=== PATIENT | male | born 1940 | race Caucasian/White ===

== ENCOUNTER 2018-01-28 06:02 | Inpatient (IN) | payer BC, MEDICARE ==
[2018-01-28] MEDS ORDERED: MIDAZOLAM 2 MG/2 ML VIAL ONE (06:58)
[2018-01-28] MEDS ORDERED: diphenhydrAMINE 50 MG/ML 1 ML VIAL ONE (06:58)
[2018-01-28] MEDS ORDERED: SODIUM CHLORIDE 0.9% 1,000 ML IV ONE (07:00)
[2018-01-28] MEDS ORDERED: diphenhydrAMINE 50 MG/ML 1 ML VIAL IVP ONE (07:00)
[2018-01-28] MEDS ORDERED: MIDAZOLAM 2 MG/2 ML VIAL IVP ONE ×2 (07:00→08:27)
[2018-01-28] MEDS ORDERED: LIDOCAINE 2% INJ 20 MG/ML SQ ONE (07:04)
[2018-01-28] MEDS ORDERED: NOREPINEPHRINE 4 MG in SODIUM CHLORIDE 0.9% 250 ML IV ONE (07:20)
[2018-01-28] MEDS ORDERED: LIDOCAINE 1% INJ 10MG/ML (20 ML MDV) ONE (07:21)
[2018-01-28] MEDS ORDERED: FUROSEMIDE 10 MG/ML 4 ML VIAL ONE (07:37)
[2018-01-28] MEDS ORDERED: HEPARIN SODIUM 1,000 UN/ML (10ML VL) ONE (08:04)
[2018-01-28] MEDS ORDERED: BIVALIRUDIN BOLUS 250 MG/50 ML IV ONE (08:27)
[2018-01-28] MEDS ORDERED: BIVALIRUDIN 250 MG in SODIUM CHLORIDE 0.9% 50 ML IV ONE (08:28)
[2018-01-28] MEDS ORDERED: FUROSEMIDE 10 MG/ML 4 ML VIAL IV ONE ×2 (08:30→08:43)
[2018-01-28] MEDS ORDERED: IOPAMIDOL-370 100ML BTL INJ ONE ×2 (08:34→08:47)
[2018-01-28] MEDS ORDERED: niCARdipine Syringe (1,000 mcg/10 mL) INTRACORON ONE (08:38)
[2018-01-28] MEDS ORDERED: TICAGRELOR 90 MG TAB PO ONE (08:45)
[2018-01-28] MEDS ORDERED: ceFAZolin IN SWFI 2 GM/20 ML SYRINGE IVP STA (08:46)
[2018-01-28] MEDS ORDERED: MORPHINE SULFATE 4 MG/ML SYRINGE IVP ONE (08:48)
[2018-01-28] MEDS ORDERED: NITROGLYCERIN SL TABS 0.4 MG TAB SUBLINGUAL PRN (09:00)
[2018-01-28] MEDS ORDERED: ATROPINE SULFATE 0.1 MG/ML 10ML SYRINGE IV PRN (09:00)
[2018-01-28] MEDS ORDERED: ZOLPIDEM 5 MG TAB PO PRN (09:00)
[2018-01-28] MEDS ORDERED: MAG HYDROX/AL HYDROX/SIMETH 30 ML CUP PO PRN (09:00)
[2018-01-28] MEDS ORDERED: RX INFO: IV CONTRAST WAS GIVEN 1 EACH MISC MISCELLANE PRN (09:00)
[2018-01-28 09:45] LABS: Glucose,Whole Blood 177 mg/dL (75-99)
--- NOTE | 2018-01-28 10:43 | CONS ---
CONSULTATION Mr. Garay is a 77-year-old gentleman with type 2 diabetes, hypertension, hypercholesterolemia and chronic atrial fibrillation on Eliquis, who was transferred from [facility] where he presented initially with shortness of breath and some chest tightness, subsequently had further additional chest discomfort with a troponin elevation up to 30 . He was transferred here with some relative hypotension and chest discomfort with atrial fibrillation rate in the high 90s and a blood pressure of about 98 to 104 systolic. Upon evaluation, patient had a pain of about 3/10 and remained relatively more comfortable after received some morphine and he was already on Eliquis 5 mg b.i.d. and the last dose he has received was about 24 hours ago. He was also on a beta savana as well that he received. He had a El catheter in place. I explained to the patient that I will proceed with cardiac cath and intervention based on findings. I explained to him the rationale, risks, benefits, options and proceeded with cardiac catheterization. RELEVANT PAST MEDICAL HISTORY: 1. Type 2 diabetes. 2. Hypertension. 3. Chronic atrial fib, well anticoagulated with Eliquis 5 mg b.i.d. MEDICATIONS: Medications at home include Januvia 50 mg daily, metoprolol 25 mg b.i.d., Protonix 40 mg daily, Synthroid 150 mcg daily, Lasix 20 mg daily, fish oil, aspirin 81 mg daily, Eliquis 5 mg b.i.d. ALLERGIES: He has some allergy to STEROIDS. PHYSICAL EXAMINATION: On examination, blood pressure is 104/60, pulse rate is about 100 per minute, irregular. There is JVD of 1 cm. No carotid bruit. S1, S2 heard normally with a short systolic murmur, irregular rate and rhythm. Lungs reveal decent air entry both lung bueno. Abdomen is soft. Lower extremities reveal very diminished pulses. Central nervous system grossly no focal deficits. IMPRESSION: 1. Acute non-ST elevation myocardial infarction with precordial ST depression and atrial fibrillation. The patient also has hypotension along with non ST elevation myocardial infarction. 2. Chronic atrial fibrillation. 3. Hypertension. 4. Type 2 diabetes mellitus. 5. Hyperlipidemia. RECOMMENDATION: I am recommending urgent cardiac cath and intervention and proceeded to perform this in the same setting. MMODL / IJN: [id number] /
[2018-01-28 10:53] LABS: Glucose,Whole Blood 201 mg/dL (75-99)
[2018-01-28] MEDS ORDERED: HEPARIN SODIUM,PORCINE 5,000 UNIT/ML 1 ML VIAL IV PRN (11:02)
--- NOTE | 2018-01-28 11:10 | CC ---
CARDIAC CATHETERIZATION REPORT DATE OF SERVICE: 01/28/2018 PROCEDURES: 1. Left heart catheterization and coronary angiography. 2. PTCA and stenting of ostial and proximal left main coronary artery performed in the setting of an acute myocardial infarction with a drug-eluting stent. 3. Intra-aortic balloon pump placement from right femoral approach for inotropic support. PERFORMED BY: Dr. Jones Ornelas. Moderate conscious sedation time was 1 hour and 3 minutes. CLINICAL INFORMATION: Mr. Ruddy Garay is a 77-year-old gentleman with a known history of type 2 diabetes, hypertension, chronic atrial fibrillation, on Eliquis 5 mg b.i.d., who presented to [facility] with shortness of breath and had chest pain and subsequently EKG revealed precordial ST-segment depression and troponin went up to 30 mcg. Patient was transferred urgently by [facility] ambulance to the dental laboratory assistant in the [facility] and I saw the patient here in the hospital. He was advised cardiac catheterization and after the cardiac catheterization, he had a significant ostial left main disease and after due evaluation of the angiogram with Dr. David Puga, he felt that urgent PCI would be a better option given the fact patient had already infarcted with a troponin of 30 and therefore I proceeded to perform intervention in the same setting after due discussion with the patient, his by phone and Dr. Puga who reviewed the angiograms. PROCEDURE DETAILS: Under strict aseptic precautions and local anesthesia, a 6-Kinyarwanda introducer was placed in the right femoral artery. Using a standard right Scarlett catheter, I performed selective coronary angiography of the RCA and using a standard left Scarlett guide catheter, I performed selective coronary angiography of the left coronary artery. I used a pigtail catheter to check LV pressures but I did not perform an LV-gram. I noted that there was a significant left main lesion and after due discussion with Dr. Puga, I proceeded to perform PCI. In between, I went there and placed intra-aortic balloon pump under fluoroscopic guidance from the right femoral approach and I placed a 6-Kinyarwanda introducer in the left femoral artery under strict aseptic precautions and local anesthesia. A good augmentation was noted. Patient was placed on Levophed up to 7.5 mcg for a brief duration. Subsequently, he was on 4 mcg of Levophed and intra- aortic balloon pump was also provided. Patient stabilized hemodynamically. PCI PROCEDURE DETAILS: After explaining the high risk involved to the patient and talking to the on the phone and after due discussion with Dr. Puga, I proceeded to perform the procedure. A JL 3.5 guide catheter was used to cannulate the left coronary artery. A BMW wire was used to cross the lesion in the left main and wire was kept in the distal LAD. Predilatation was performed with a 2.5 caliber 8 mm long Trek balloon. Two inflations were given. Subsequently I deployed a 3.25 caliber 12 mm Xience stent at 14 atmospheres. Patient had chest pain and blood pressure remained fairly stable. Excellent angiographic result without complication was achieved. The sheath was sutured from the left femoral approach. The patient had a intra-aortic balloon pump from the right femoral approach which was in good position with good augmentation. Both the sheaths were sutured and balloon pump was secured and patient was sent to the ICU in hemodynamically more stable condition on 4 mcg of Levophed. Results were discussed with the patient and . FINDINGS: 1. RIGHT CORONARY ARTERY: Technically a dominant vessel, has about a 40% lesion proximally. Mild to moderate calcification, distally continues as a good-sized branch and gives off a larger PLV, smaller PDA both of which supply a fair amount of myocardium. No significant disease other than the 40% proximal lesion in the dominant RCA. 2. LEFT MAIN CORONARY ARTERY: This vessel has an ostial lesion of about 90% with possibly some haziness and thrombus and the lesion also involves the proximal half of the left main and distally bifurcates into LAD and circumflex. Left main therefore has a 95% - 98% tight lesion with thrombus. 3. LEFT ANTERIOR DESCENDING CORONARY ARTERY: Good caliber vessel extends along the anterior wall. There is somewhat of a sluggish flow noted in the distal LAD. It gives off a good-sized diagonal branch that has about a 60% stenosis in the ostium. LAD itself has no other significant disease. It runs all the way to the apex. supplying a sizable amount of myocardium. The blood flow is somewhat sluggish in the LAD and diagonal has a 60% to 70% lesion in the proximal portion and this is a good-sized diagonal branch. 4. LEFT POSTERIOR CIRCUMFLEX CORONARY ARTERY: Technically, a nondominant vessel, has a ostial 30% narrowing and a mid lesion of about 40%. No significant disease supplies a fair amount of myocardium. 5. Left ventricular end-diastolic pressure was 28 mmHg without any gradient across the aortic valve. 6. Following the PCI of left main, excellent angiographic result was achieved. The residual stenosis in the left main was 0% with brisk flow. Patient received some nicardipine. Intra-aortic coronary and angiograms revealed remarkably good flow. LAD had a very good flow and the sluggish flow that was seen earlier resolved completely. Excellent angiographic result without complication was achieved. The intra-aortic balloon pump from the right femoral approach with 8-Kinyarwanda sheath as well as a 6-Kinyarwanda sheath in the left femoral artery were both sutured and patient was sent to the room in a stable condition. Results were discussed with the patient, and I also talked to Dr. Chua. MMROHIT / SHANTI: [id number] /
[2018-01-28] MEDS: SODIUM CHLORIDE 0.9% 1,000 ML IV SCH (11:14)
[2018-01-28] MEDS: INSULIN ASPART 100 UNIT/ML 1 ML 10 ML VIAL SQ SCH ×3 (11:18→20:28)
[2018-01-28] MEDS: ASPIRIN 81 MG PO SCH (11:19)
[2018-01-28 11:35] LABS: Basophils % (A) 0 %; Eosinophils % (A) 0 %; HCT 40.5 % (39.0-53.0); HGB 13.9 gm/dL (13.0-17.5); Lymphocytes # (A) 0.9 k/uL (1.0-4.8); Lymphocytes % (A) 6 %; MCH 31.9 pg (25.0-35.0); MCHC 34.4 g/dL (31.0-37.0); MCV 92.7 fL (80.0-100.0); Mean Platelet Volume 7.6; Monocytes # (A) 1.2 k/uL (0-1.0); Monocytes % (A) 8 %; Neutrophils # (A) 13.1 k/uL (1.3-7.7); Neutrophils % (A) 86 %; Platelet Count 214 k/uL (150-450); RBC 4.37 m/uL (4.30-5.90); RDW 13.3 % (11.5-15.5); WBC 15.3 k/uL (3.8-10.6)
[2018-01-28 11:47] LABS: Albumin 3.1 g/dL (3.5-5.0); Calcium 8.7 mg/dL (8.4-10.2); Potassium 3.9 mmol/L (3.5-5.1); Total Bilirubin 1.8 mg/dL (0.2-1.3); Total Protein 5.9 g/dL (6.3-8.2)
[2018-01-28 11:57] LABS: Magnesium 1.7 mg/dL (1.6-2.3)
[2018-01-28] MEDS: HEPARIN SOD,PORK IN 0.45% NACL 25,000 UNIT in 0.45% NACL 1 500ML.BAG IV SCH (11:57)
[2018-01-28 11:59] LABS: INR 1.6 (<1.2); Partial Thromboplastin Time 51.7 sec (22.0-30.0); Prothrombin Time 14.6 sec (9.0-12.0)
[2018-01-28] MEDS ORDERED: NALOXONE 0.4 MG/ML 1 ML VIAL IV PRN (12:07)
[2018-01-28] MEDS ORDERED: NOREPINEPHRINE 4 MG in SODIUM CHLORIDE 0.9% 250 ML IV SCH (12:30)
--- NOTE | 2018-01-28 12:34 | HP ---
HISTORY AND PHYSICAL CHIEF COMPLAINT: Nonspecific chest pain with shortness of breath. A 77-year-old white male that came to my office yesterday morning with 7 days of nonspecific chest tightness especially with coughing that was central in his chest. No radiation. No diaphoresis. No no neck, arm pain. This seemed to occur with coughing. At that period of time, initial EKG showed no acute changes. His chest x-ray does show some interstitial changes indicative of possible viremia or viral tracheobronchitis versus mycoplasma. At that period of time, we decided to place him in the hospital accordingly and he was stable, driven to the hospital by his , ended up going in to [facility] and after several hours was evaluated and came down with moderately severe, 7 to 8 on a 10 scale mid chest pain which was different. At that period of time, he was given sublingual nitroglycerin x3 without any alleviation and was directly sent down to the emergency room, which there was nitro paste was attached and also IV morphine was started. His stat blood tests finally came back several hours after being ordered and he had the elevated troponin the first of 3.6. Another repeat EKG showed no acute changes previously. Also at that time, had a sodium of 126. Blood pressure was low, was given IV fluids and continued to improve. Dr. Jones Ornelas was consulted. At this time, we felt that patient had had what appeared to be a 7 non-STEMI. Of interest was he also had an elevated D-dimer of nearly 600 and a BNP of 300. Initially a CAT scan with IV dye was to be completed of the lung, but patient did insist that he had been on his Eliquis without missing for his chronic atrial fib. AT THIS PERIOD OF TIME HIS ALLERGIES ARE: CODEINE, old time CORTISONE back 30 years ago from IV, ULTRAM, VICRYL, PROFEN, CYMBALTA, EFFEXOR, VYTORIN, ULTRACET and LYRICA. MEDICATIONS ARE: 1. Protonix 40 twice a day. 2. Synthroid 0.1 daily. 3. Hyzaar 100-12.5. 4. Januvia 50. 5. Neurontin 100.at bedtime. 6. Eliquis 5 mg b.i.d. 7. Lasix 20 mg in the morning. 8. Metoprolol 25 mg b.i.d. PREVIOUS HISTORY: Medical history is that of longstanding hypertension and generalized severe osteoarthritis. euthyroid, newly onset type 2 diabetes with minimal Januvia use, atrial fib has been going on now x2 years, but has been stable. A recent stress test was completed that I have in my hands per Dr. Trinidad but that was in August of 2016. Then earlier this morning, he was then transferred here to [facility] and taken right up to the cardiac analyst microbiology lab. Dr. Paula Ornelas called me and said that he has an obvious 50+ percent LAD not LAD, but main coronary artery and also LAD blockage. Accordingly, the cardiac team is here so they attempted angioplasty and stent placement and was successful in transfer to ICU and then recently saw him again and he is stable. ASSESSMENT: 1. Non ST-elevation. non STEMI myocardial infarction, chronic atrial fib which has been stable. 2. History of hypertension, type 2 diabetes mellitus, which is stable, hyperlipidemia euthyroid, generalized severe osteoarthritis, GE reflux, lumbar stenosis with neuropathy and some mild COPD, taken care of by Dr. Martínez, stunner. Our. PLAN: Is to continue to his postprocedure care. He stable feels good at this time with a very dull chest pain. Dr. Martínez was also consulted to follow up with his pulmonary status. We will continue him on insulin to scale hyperlipidemia. The patient is doing well. TIME SPENT: Today with this patient is greater than 60 minutes totally. All of this is to build via ICU. MMANTOINEL / JESUSITAN: [id number] /
--- NOTE | 2018-01-28 13:16 | P.CNPUL ---
History of Present Illness Consult date: 01/28/18 Reason for consult: dyspnea, chest pain Chief complaint: Bandlike chest pain for last 1 week off and on History of present illness: 77-year-old male well-known to me from history of COPD and sleep disorder breathing and sleep apnea patient has been having issues associated with bandlike chest pain off and on for almost a week comes to appointment that he was seen eval reexamined at primary care office advised to be admitted at [facility] where he was found to have ST segment depression as well as elevated troponins and patient was transferred to [facility] for more definitive intervention patient has been evaluated by cardiovascular surgery as well as cardiology underwent cardiac cath and angiogram and stent in proximal left main has been placed by interventional cardiology. Patient also has the intra- aortic balloon pump currently set at right femoral vein patient does not have any IV axis and has been on now for mics of levo fed drip with marginal blood pressure systolic of 90, on specific questioning patient is currently pain-free does feel weak in general denies any cough or sputum production denies any significant shortness of breath Review of Systems All systems: negative Medications and Allergies Home Medications Medication Instructions Recorded Confirmed Type Furosemide [Lasix] 20 mg PO DAILY 01/28/18 01/28/18 History Gabapentin [Neurontin] 100 mg PO DAILY 01/28/18 01/28/18 History Levothyroxine Sodium [Synthroid] 150 mcg PO DAILY 01/28/18 01/28/18 History Metoprolol Tartrate 25 mg PO BID 01/28/18 01/28/18 History Allergies Allergy/AdvReac Type Severity Reaction Status Date / Time cortisone Allergy Swelling Verified 01/28/18 10:58 Physical Exam Vitals: Vital Signs Pulse BP Pulse Ox 01/28/18 11:00 89 100/74 96 01/28/18 10:45 99 100/74 97 01/28/18 10:30 104 H 111/65 96 01/28/18 10:15 89 111/65 94 L 01/28/18 10:00 96 108/77 92 L 01/28/18 09:45 91 108/77 93 L 01/28/18 09:43 92 93 L 01/28/18 08:01 62 Intake and Output 01/27/18 01/28/18 01/28/18 22:59 06:59 14:59 Intake Total 499 Balance 499 Intake: IV 499 Other: Weight 90 kg ABP, PAP, CO, CI - Last 8 Hours Arterial Blood Pressure 99/57 Arterial Blood Pressure 100/59 Arterial Blood Pressure 89/41 Arterial Blood Pressure 79/44 Arterial Blood Pressure 86/47 - Constitutional General appearance: disheveled, morbidly obese, no acute distress - EENT Eyes: EOMI, PERRLA, normal appearance ENT: hearing grossly normal, normal oropharynx Ears: bilateral: normal - Neck Carotids: bilateral: upstroke normal Thyroid: bilateral: normal size - Respiratory Respiratory: bilateral: CTA - Cardiovascular Heart sounds: normal: S1, S2 - Gastrointestinal General gastrointestinal: decreased bowel sounds, distended, soft - Neurologic Neurologic: CNII-XII intact - Musculoskeletal Musculoskeletal: gait normal, generalized weakness, strength equal bilaterally - Psychiatric Psychiatric: A&O x's 3, appropriate affect, intact judgment & insight Results - Laboratory Findings CBC and BMP: 01/28/18 10:54 01/28/18 10:54 PT/INR, D-dimer PT 14.6 sec (9.0-12.0) H 01/28/18 10:54 INR 1.6 (<1.2) H 01/28/18 10:54 Abnormal lab findings: Abnormal Labs 01/28/18 01/28/18 01/28/18 09:43 10:47 10:51 WBC Neutrophils # Lymphocytes # Monocytes # PT INR APTT Sodium Chloride Carbon Dioxide BUN Glucose POC Glucose (mg/dL) 177 H 201 H Total Bilirubin AST Troponin I 148.000 H* Total Protein Albumin 01/28/18 01/28/18 01/28/18 10:54 10:54 10:54 WBC 15.3 H Neutrophils # 13.1 H Lymphocytes # 0.9 L Monocytes # 1.2 H PT 14.6 H INR 1.6 H APTT 51.7 H Sodium 131 L Chloride 97 L Carbon Dioxide 21 L BUN 26 H Glucose 188 H POC Glucose (mg/dL) Total Bilirubin 1.8 H AST 493 H Troponin I Total Protein 5.9 L Albumin 3.1 L - Diagnostic Findings Chest x-ray: report reviewed, image reviewed Assessment and Plan Assessment: Acute non-ST segment elevated AR Diffuse coronary artery disease with the occlusion of left main COPD Obstructive sleep apnea Morbid obesity Plan: As needed breathing treatments Hemodynamic support with intra-aortic balloon pump augmentation Present pressors with levo fed Monitor urine output Patient will need a central line procedure explained to the patient at length will proceed with placement Type 2 diabetes mellitus management Hypertension hypertensive cardiovascular disease management Time with Patient: Greater than 30
--- NOTE | 2018-01-28 13:19 | P.PCN ---
Date of Procedure: 01/28/18 Preoperative Diagnosis: Acute non-ST segment elevated RI, coronary artery disease with stenosis of left main, hypertension hypertensive cardiovascular disease, type 2 diabetes mellitus hypertension ischemic cardiomyopathy acute in nature Postoperative Diagnosis: As above Procedure(s) Performed: Right-sided central line placement to right internal jugular wire anterior approach utilizing ultrasound Anesthesia: MAC Surgeon: Celestino Martínez Condition: critical Disposition: ICU Indications for Procedure: As above Operative Findings: As below Description of Procedure: Patient prepared and draped in a usual fashion, procedure explained to the patient at length, using aseptic technique triple-lumen catheter inserted into the right internal jugular vein via modified singeing approach patient tolerated procedure well no complication noted all 3 ports are flushed secured with silk chest x-ray postprocedure confirmed the position of central line Without any obvious complication, patient tolerated procedure well no complication noted
--- NOTE | 2018-01-28 13:21 | XR ---
EXAMINATION TYPE: XR chest 1V DATE OF EXAM: 01/28/2018 COMPARISON: 01/27/2018 HISTORY: Line placement. TECHNIQUE: Single frontal view of the chest is obtained. FINDINGS: New right-sided internal jugular central venous catheter is placed with its tip in the dis terry superior vena cava. Density overlying the aortic arch may represent an intra-aortic balloon pump or overlying density. There is mild pulmonary vascular congestion with right midlung linear horizonta lly oriented platelike subsegmental atelectasis. Cardiomediastinal silhouette is upper limits of norm al. No sizable pleural effusion or pneumothorax. Osseous structures appear intact. IMPRESSION: Appropriately placed right-sided internal jugular central catheter terminating in the di stal superior vena cava. New mild pulmonary vascular congestion and fluid overload.
[2018-01-28] MEDS ORDERED: Magnesium Replacement Protocol 1 EACH MISC MISCELLANE PRN (13:52)
[2018-01-28] MEDS ORDERED: Potassium Replacement Protocol 1 EACH MISC MISCELLANE PRN (13:53)
[2018-01-28] MEDS ORDERED: POTASSIUM CHLORIDE ER 20 MEQ TAB.ER PO SCH ×2 (14:00→21:00)
[2018-01-28] MEDS: MAGNESIUM SULFATE-D5W PMX 1 GM in DEXTROSE/WATER 1 100ML.BAG IVPB SCH ×2 (15:20→17:04)
[2018-01-28 16:02] VITALS: BMI 31.1
[2018-01-28] MEDS: ceFAZolin 1,000 MG in DEXTROSE/WATER 1 50ML.BAG IVPB SCH (17:01)
[2018-01-28 17:18] LABS: Glucose,Whole Blood 211 mg/dL (75-99)
[2018-01-28] MEDS: PANTOPRAZOLE 40 MG TABLET PO SCH (17:41)
[2018-01-28 17:48] LABS: Hemoglobin A1C 6.7 % (4.0-6.0)
[2018-01-28 20:25] LABS: Glucose,Whole Blood 210 mg/dL (75-99)
[2018-01-28] MEDS: ATORVASTATIN 80 MG TAB PO SCH (20:29)
[2018-01-28] MEDS: METOPROLOL TARTRATE 50 MG TAB PO SCH (20:29)
[2018-01-28] MEDS: GABAPENTIN 100 MG CAP PO SCH (20:29)
[2018-01-28] MEDS: TICAGRELOR 90 MG TAB PO SCH (20:29)
[2018-01-28] MEDS ORDERED: METOPROLOL TARTRATE 25 MG TAB PO SCH (21:00)
[2018-01-28] MEDS: BENZOCAINE/MENTHOL LOZENG 1 EACH LOZENGE MUCOUS MEM PRN (21:05)
[2018-01-29] MEDS: ceFAZolin 1,000 MG in DEXTROSE/WATER 1 50ML.BAG IVPB SCH ×3 (01:00→17:51)
[2018-01-29 05:09] LABS: ALT 67 U/L (21-72); AST 358 U/L (17-59); Albumin 2.8 g/dL (3.5-5.0); Alkaline Phosphatase 56 U/L (38-126); Anion Gap 8 mmol/L; Basophils % (A) 0 %; Blood Urea Nitrogen 23 mg/dL (9-20); Calcium 8.7 mg/dL (8.4-10.2); Carbon Dioxide 21 mmol/L (22-30); Chloride 100 mmol/L (98-107); Eosinophils # (A) 0.1 k/uL (0-0.7); Eosinophils % (A) 1 %; Glucose 172 mg/dL (74-99); HCT 39.7 % (39.0-53.0); HGB 13.7 gm/dL (13.0-17.5); Lymphocytes # (A) 1.2 k/uL (1.0-4.8); Lymphocytes % (A) 9 %; MCH 31.6 pg (25.0-35.0); MCHC 34.5 g/dL (31.0-37.0); MCV 91.4 fL (80.0-100.0); Magnesium 2.1 mg/dL (1.6-2.3); Mean Platelet Volume 7.2; Monocytes # (A) 1.2 k/uL (0-1.0); Monocytes % (A) 8 %; Neutrophils % (A) 82 %; Phosphorus 2.6 mg/dL (2.5-4.5); Platelet Count 186 k/uL (150-450); Potassium 4.5 mmol/L (3.5-5.1); RBC 4.35 m/uL (4.30-5.90); RDW 13.4 % (11.5-15.5); Sodium 129 mmol/L (137-145); Total Protein 5.6 g/dL (6.3-8.2); WBC 14.6 k/uL (3.8-10.6)
[2018-01-29] MEDS: LEVOTHYROXINE 75 MCG TAB PO SCH (06:30)
[2018-01-29 07:10] LABS: Glucose,Whole Blood 191 mg/dL (75-99)
--- NOTE | 2018-01-29 07:20 | XR ---
EXAMINATION TYPE: XR chest 1V portable DATE OF EXAM: 01/29/2018 CLINICAL HISTORY: Difficulty breathing and chest pain progress study. TECHNIQUE: Single AP portable semiupright view of the chest is obtained. COMPARISON: Chest x-ray from one day earlier and older studies. FINDINGS: There are stable right internal jugular central venous catheter. Linear density over aorti c knob favors intra-aortic balloon pump is redemonstrated. Metallic anchors bilateral humeral heads f rom rotator cuff surgery are redemonstrated. Old right lateral sixth rib fracture is redemonstrated. Cardiac silhouette size is stable and mildly enlarged. There is moderate central vascular congestion felt slightly more prominent from prior. No large pleural effusion or pneumothorax is seen bilaterall y. No suspicious new focal airspace opacity is seen. IMPRESSION: Worsening moderate central vascular congestion suggest fluid overload state and/or CHF ex acerbation. Correlate clinically.
[2018-01-29] MEDS ORDERED: MORPHINE SULFATE 2 MG/ML SYRINGE IVP STA (08:10)
[2018-01-29] MEDS: INSULIN ASPART 100 UNIT/ML 1 ML 10 ML VIAL SQ SCH ×4 (08:50→21:32)
[2018-01-29] MEDS: METOPROLOL TARTRATE 50 MG TAB PO SCH ×2 (08:51→21:32)
[2018-01-29] MEDS: FUROSEMIDE 20 MG TAB PO SCH (08:51)
[2018-01-29] MEDS: ASPIRIN 81 MG PO SCH (08:51)
[2018-01-29] MEDS: PANTOPRAZOLE 40 MG TABLET PO SCH ×2 (08:51→17:52)
[2018-01-29] MEDS: MORPHINE SULFATE 2 MG/ML SYRINGE ONE ×2 (08:52→09:32)
[2018-01-29] MEDS: TICAGRELOR 90 MG TAB PO SCH ×2 (09:03→21:33)
[2018-01-29] MEDS: SODIUM CHLORIDE 0.9% 1,000 ML IV SCH (09:28)
--- NOTE | 2018-01-29 11:11 | PN ---
PROGRESS NOTE Ruddy is a 77-year-old gentleman who presented to the hospital with lar-AG-[id number] elevation PR. Underwent emergent cardiac catheterization and was found to have left main stenosis where he underwent stent placement. This morning the balloon pump had been removed. The patient has a line in the left femoral artery which is going to be removed later today. Has a right IJ which will be removed if the patient is stable later in the day or tomorrow. The patient is receiving antibiotics. He is clinically stable, remains in atrial fibrillation, heart rate is well controlled, oxygenating well. Labs show a hemoglobin of 13.7. Potassium is 4.5. Creatinine is 0.8. Peak troponin was 113. Chest exam reveals good air entry bilaterally. Heart exam reveals first and second heart sounds. No gallop. Examination of the extremities did not reveal any edema. Peripheral pulses are intact. Labs have been reviewed. ASSESSMENT: Non ST-segment elevation myocardial infarction, status post cath and stenting of the left main coronary artery. PLAN: Patient is doing fairly well this morning. He is on aspirin, Lipitor, Lasix, Lopressor, Brilinta. Will treat him in ICU until the lines are off and is able to sit up and walk, then he can be transferred out of ICU. MMODL / JESUSITAN: [id number] /
[2018-01-29 11:15] LABS: Glucose,Whole Blood 183 mg/dL (75-99)
[2018-01-29] MEDS: HEPARIN SOD,PORK IN 0.45% NACL 25,000 UNIT in 0.45% NACL 1 500ML.BAG IV SCH (11:38)
--- NOTE | 2018-01-29 13:56 | P.PN ---
Subjective Progress Note Date: 01/29/18 Principal diagnosis: Acute non-ST segment elevated FL, coronary artery disease, severe COPD, uncontrolled diabetes mellitus with complication, obstructive sleep apnea, severe morbid obesity 01/29/2018, patient seen eval reexamined during the rounds clinically patient is doing much better and the intra-aortic balloon pump has been removed, patient has been off of levo fed drip, breathing comfortably but does require supplemental oxygen get short of breath without oxygen and does desaturate denies any chest pain at this point of time the triple-lumen catheter site is intact in the right neck, care plan discussed with the nursing staff at length, and agree with keeping patient in ICU for now with further recommendations pending we'll keep the central line given patient has very poor peripheral venous access 77-year-old male well-known to me from history of COPD and sleep disorder breathing and sleep apnea patient has been having issues associated with bandlike chest pain off and on for almost a week comes to appointment that he was seen eval reexamined at primary care office advised to be admitted at [facility] where he was found to have ST segment depression as well as elevated troponins and patient was transferred to [facility] for more definitive intervention patient has been evaluated by cardiovascular surgery as well as cardiology underwent cardiac cath and angiogram and stent in proximal left main has been placed by interventional cardiology. Patient also has the intra- aortic balloon pump currently set at right femoral vein patient does not have any IV axis and has been on now for mics of levo fed drip with marginal blood pressure systolic of 90, on specific questioning patient is currently pain-free does feel weak in general denies any cough or sputum production denies any significant shortness of breath Objective - Vital Signs Vital signs: Vital Signs Temp 98.4 F 01/29/18 08:30 Pulse 90 01/29/18 12:00 Resp 8 L 01/29/18 12:00 BP 105/70 01/29/18 12:00 Pulse Ox 93 L 01/29/18 12:00 Intake & Output 01/28/18 01/29/18 01/29/18 18:59 06:59 18:59 Intake Total 2046.5 1816 854 Output Total 2100 818 300 Balance -53.5 998 554 Weight 90 kg Intake: IV 1174 1066 424 Pressure bag for A-Line & 66 24 IABP Sodium Chloride 0.9% 5 900 300 000 ml @ 75 mls/hr IV . [id number] [facility] Rx#:[id number] ceFAZolin 1,000 mg In 100 100 Dextrose/Water 1 50ml.bag @ 100 mls/hr IVPB Q8HR [facility] Rx#:[id number] Intake, IV Titration 312.5 Amount Magnesium Sulfate-D5w Pmx 200 1 gm In Dextrose/Water 1 100ml.bag @ 100 mls/hr IVPB Q1H [facility] Rx#: [id number] Norepinephrine 4 mg In 112.5 Sodium Chloride 0.9% 250 ml @ Titrate IV .Q0M [facility] Rx#:[id number] Oral 560 750 430 Output: Urine 2100 818 300 Other: Voiding Method Indwelling Catheter Indwelling Catheter ABP, PAP, CO, CI - Last Documented Arterial Blood Pressure 105/53 - Exam - Constitutional General appearance: disheveled, morbidly obese, no acute distress - EENT Eyes: EOMI, PERRLA, normal appearance ENT: hearing grossly normal, normal oropharynx Ears: bilateral: normal - Neck Carotids: bilateral: upstroke normal Thyroid: bilateral: normal size - Respiratory Respiratory: bilateral: CTA - Cardiovascular Heart sounds: normal: S1, S2 - Gastrointestinal General gastrointestinal: decreased bowel sounds, distended, soft - Neurologic Neurologic: CNII-XII intact - Musculoskeletal Musculoskeletal: gait normal, generalized weakness, strength equal bilaterally - Psychiatric Psychiatric: A&O x's 3, appropriate affect, intact judgment & insight - Labs CBC & Chem 7: 01/29/18 04:13 01/29/18 04:13 Labs: Abnormal Lab Results - Last 24 Hours (Table) 01/28/18 01/28/18 01/28/18 Range/Units 10:54 17:15 18:00 WBC (3.8-10.6) k/uL Neutrophils # (1.3-7.7) k/uL Monocytes # (0-1.0) k/uL APTT (22.0-30.0) sec Sodium (137-145) mmol/L Carbon Dioxide (22-30) mmol/L BUN (9-20) mg/dL Glucose (74-99) mg/dL POC Glucose (mg/dL) 211 H (75-99) mg/dL Hemoglobin A1c 6.7 H (4.0-6.0) % Total Bilirubin (0.2-1.3) mg/dL AST (17-59) U/L Troponin I 113.000 H* (0.000-0.034) ng/mL Total Protein (6.3-8.2) g/dL Albumin (3.5-5.0) g/dL 01/28/18 01/28/18 01/29/18 Range/Units 18:00 20:24 04:13 WBC 14.6 H (3.8-10.6) k/uL Neutrophils # 12.0 H (1.3-7.7) k/uL Monocytes # 1.2 H (0-1.0) k/uL APTT 49.3 H (22.0-30.0) sec Sodium (137-145) mmol/L Carbon Dioxide (22-30) mmol/L BUN (9-20) mg/dL Glucose (74-99) mg/dL POC Glucose (mg/dL) 210 H (75-99) mg/dL Hemoglobin A1c (4.0-6.0) % Total Bilirubin (0.2-1.3) mg/dL AST (17-59) U/L Troponin I (0.000-0.034) ng/mL Total Protein (6.3-8.2) g/dL Albumin (3.5-5.0) g/dL 01/29/18 01/29/18 01/29/18 Range/Units 04:13 04:13 07:08 WBC (3.8-10.6) k/uL Neutrophils # (1.3-7.7) k/uL Monocytes # (0-1.0) k/uL APTT 51.5 H (22.0-30.0) sec Sodium 129 L (137-145) mmol/L Carbon Dioxide 21 L (22-30) mmol/L BUN 23 H (9-20) mg/dL Glucose 172 H (74-99) mg/dL POC Glucose (mg/dL) 191 H (75-99) mg/dL Hemoglobin A1c (4.0-6.0) % Total Bilirubin 2.0 H (0.2-1.3) mg/dL AST 358 H (17-59) U/L Troponin I (0.000-0.034) ng/mL Total Protein 5.6 L (6.3-8.2) g/dL Albumin 2.8 L (3.5-5.0) g/dL 01/29/18 Range/Units 11:12 WBC (3.8-10.6) k/uL Neutrophils # (1.3-7.7) k/uL Monocytes # (0-1.0) k/uL APTT (22.0-30.0) sec Sodium (137-145) mmol/L Carbon Dioxide (22-30) mmol/L BUN (9-20) mg/dL Glucose (74-99) mg/dL POC Glucose (mg/dL) 183 H (75-99) mg/dL Hemoglobin A1c (4.0-6.0) % Total Bilirubin (0.2-1.3) mg/dL AST (17-59) U/L Troponin I (0.000-0.034) ng/mL Total Protein (6.3-8.2) g/dL Albumin (3.5-5.0) g/dL Assessment and Plan Assessment: Acute non-ST segment elevated FL Diffuse coronary artery disease with the occlusion of left main COPD severe Obstructive sleep apnea Morbid obesity Type 2 diabetes mellitus with complication and uncontrolled hyperglycemia Severe morbid obesity Plan: As needed breathing treatments Hemodynamic support as tolerated, observe off of pressors Monitor urine output We'll keep the central line in for now Type 2 diabetes mellitus management Hypertension hypertensive cardiovascular disease management Time with Patient: Greater than 30
[2018-01-29 17:46] LABS: Glucose,Whole Blood 162 mg/dL (75-99)
[2018-01-29] MEDS ORDERED: ALPRAZolam 0.25 MG TAB PO PRN ×2 (17:56→18:02)
[2018-01-29] MEDS ORDERED: LOSARTAN 25 MG TAB PO SCH (20:00)
[2018-01-29 20:46] LABS: Glucose,Whole Blood 217 mg/dL (75-99)
[2018-01-29] MEDS ORDERED: APIXABAN 2.5 MG TABLET PO SCH (21:00)
[2018-01-29] MEDS: GABAPENTIN 100 MG CAP PO SCH (21:32)
[2018-01-29] MEDS: ATORVASTATIN 80 MG TAB PO SCH (21:32)
[2018-01-29] MEDS: LOSARTAN 25 MG TAB PO SCH (21:32)
[2018-01-30] MEDS: BENZOCAINE/MENTHOL LOZENG 1 EACH LOZENGE MUCOUS MEM PRN (01:35)
[2018-01-30] MEDS: IPRATROPIUM-ALBUTEROL 3 ML NEB INHALATION PRN ×3 (02:17→15:53)
[2018-01-30 05:16] LABS: Basophils % (A) 0 %; Eosinophils # (A) 0.1 k/uL (0-0.7); Eosinophils % (A) 1 %; HCT 37.3 % (39.0-53.0); HGB 12.6 gm/dL (13.0-17.5); Lymphocytes # (A) 1.1 k/uL (1.0-4.8); Lymphocytes % (A) 8 %; MCH 31.4 pg (25.0-35.0); MCHC 33.7 g/dL (31.0-37.0); MCV 93.1 fL (80.0-100.0); Mean Platelet Volume 7.1; Monocytes # (A) 1.1 k/uL (0-1.0); Monocytes % (A) 7 %; Neutrophils # (A) 12.8 k/uL (1.3-7.7); Neutrophils % (A) 84 %; Platelet Count 162 k/uL (150-450); RBC 4.01 m/uL (4.30-5.90); RDW 13.4 % (11.5-15.5); WBC 15.3 k/uL (3.8-10.6)
[2018-01-30 05:26] LABS: Anion Gap 8 mmol/L; Blood Urea Nitrogen 23 mg/dL (9-20); Calcium 8.9 mg/dL (8.4-10.2); Carbon Dioxide 24 mmol/L (22-30); Chloride 93 mmol/L (98-107); Glucose 182 mg/dL (74-99); Magnesium 1.8 mg/dL (1.6-2.3); Phosphorus 2.3 mg/dL (2.5-4.5); Potassium 4.6 mmol/L (3.5-5.1); Sodium 125 mmol/L (137-145)
[2018-01-30] MEDS ORDERED: SODIUM PHOSPHATE 10 MMOL in SODIUM CHLORIDE 0.9% 250 ML IVPB ONE (05:47)
[2018-01-30] MEDS: MAGNESIUM SULFATE-D5W PMX 1 GM in DEXTROSE/WATER 1 100ML.BAG IVPB SCH ×2 (06:04→07:37)
--- NOTE | 2018-01-30 07:12 | XR ---
EXAMINATION TYPE: XR chest 1V portable DATE OF EXAM: 01/30/2018 COMPARISON: 01/29/2018 INDICATION: Short of breath with cough TECHNIQUE: Single frontal view of the chest is obtained. FINDINGS: The heart size is normal. The pulmonary vasculature is somewhat prominent greater centrally. Mild by basilar infiltrates are present. IMPRESSION: 1. Clinical correlation recommended for early volume overload
[2018-01-30] MEDS: LEVOTHYROXINE 75 MCG TAB PO SCH (07:37)
[2018-01-30 07:39] LABS: Glucose,Whole Blood 202 mg/dL (75-99)
[2018-01-30] MEDS: METOPROLOL TARTRATE 50 MG TAB PO SCH ×2 (08:39→20:43)
[2018-01-30] MEDS: PANTOPRAZOLE 40 MG TABLET PO SCH ×2 (08:39→18:28)
[2018-01-30] MEDS: TICAGRELOR 90 MG TAB PO SCH ×2 (08:39→20:42)
[2018-01-30] MEDS: FUROSEMIDE 20 MG TAB PO SCH (08:39)
[2018-01-30] MEDS: ASPIRIN 81 MG PO SCH (08:39)
[2018-01-30] MEDS: INSULIN ASPART 100 UNIT/ML 1 ML 10 ML VIAL SQ SCH ×4 (08:48→20:45)
[2018-01-30] MEDS ORDERED: FUROSEMIDE 20 MG TAB PO SCH (09:00)
[2018-01-30] MEDS ORDERED: FUROSEMIDE 10 MG/ML 4 ML VIAL ONE (09:48)
--- NOTE | 2018-01-30 09:51 | P.PN ---
Subjective Progress Note Date: 01/30/18 This is a 77-year-old gentleman who underwent stenting of the left main coronary artery by Dr. NORMA Ornelas day before yesterday. Patient presents to the hospital with the nonsustained ST elevation PA. Patient was on intact balloon pump which was removed yesterday. Apparently patient was having a lot of congestion and cough and difficulty breathing last night. A chest x-ray shows evidence of possible pulmonary edema and fluid overload. He has chronic underlying COPD and wheezing. His chest sounds very tight with expiratory wheezes. I'm going to start him on IV Lasix twice a day. We will going to cut back IV fluids to KVO. His blood pressure is in the range of 130/70. Patient is in atrial fibrillation with moderately rapid ventricular response. Echocardiogram showed an ejection fraction of 40%. Lab work showed mild hyponatremia. White count is elevated. Patient is also being followed by cat skinner Objective - Vital Signs Vital signs: Vital Signs Temp 97.6 F 01/30/18 08:30 Pulse 100 01/30/18 09:00 Resp 23 01/30/18 09:00 BP 130/78 01/30/18 09:00 Pulse Ox 95 01/30/18 09:00 Intake & Output 01/29/18 01/30/18 01/30/18 18:59 06:59 18:59 Intake Total 904 143 360 Output Total 550 325 0 Balance 354 -182 360 Intake: IV 474 143 360 Magnesium Sulfate-D5w Pmx 100 100 1 gm In Dextrose/Water 1 100ml.bag @ 100 mls/hr IVPB Q1H [facility] Rx#: [id number] Pressure bag for A-Line 24 3 Sodium Chloride 0.9% 1, 300 40 10 000 ml @ 75 mls/hr IV . [id number] [facility] Rx#:[id number] Sodium Phosphate 10 mmol 250 In Sodium Chloride 0.9% 250 ml @ 125 mls/hr IVPB ONCE ONE Rx#:[id number] ceFAZolin 1,000 mg In 150 Dextrose/Water 1 50ml.bag @ 100 mls/hr IVPB Q8HR [facility] Rx#:[id number] Oral 430 Output: Urine 550 325 0 Other: Voiding Method Indwelling Catheter Urinal Urinal # Voids 1 ABP, PAP, CO, CI - Last Documented Arterial Blood Pressure 105/53 - Exam GENERAL EXAM: Patient is alert and oriented and doesn't appear to be in moderate distress HEENT: Normocephalic. Normal reaction of pupils, equal size, normal range of extraocular motion. No erythema or exudates in the throat. NECK: No masses, no nuchal rigidity. CHEST: No chest wall deformity. LUNGS: Diminished air exchange with expiratory wheezes HEART: Distant heart sounds and irregular ABDOMEN: No hepatosplenomegaly, normal bowel sounds, no guarding or rigidity. SKIN: No rashes CENTRAL NERVOUS SYSTEM: No focal deficits. EXTREMITIES: No cyanosis, clubbing or edema. - Labs CBC & Chem 7: 01/30/18 05:00 01/30/18 05:00 Labs: Abnormal Lab Results - Last 24 Hours (Table) 01/29/18 01/29/18 01/29/18 Range/Units 11:12 17:44 20:45 WBC (3.8-10.6) k/uL RBC (4.30-5.90) m/uL Hgb (13.0-17.5) gm/dL Hct (39.0-53.0) % Neutrophils # (1.3-7.7) k/uL Monocytes # (0-1.0) k/uL Sodium (137-145) mmol/L Chloride (98-107) mmol/L BUN (9-20) mg/dL Glucose (74-99) mg/dL POC Glucose (mg/dL) 183 H 162 H 217 H (75-99) mg/dL Phosphorus (2.5-4.5) mg/dL 01/30/18 01/30/18 01/30/18 Range/Units 05:00 05:00 07:36 WBC 15.3 H (3.8-10.6) k/uL RBC 4.01 L (4.30-5.90) m/uL Hgb 12.6 L (13.0-17.5) gm/dL Hct 37.3 L (39.0-53.0) % Neutrophils # 12.8 H (1.3-7.7) k/uL Monocytes # 1.1 H (0-1.0) k/uL Sodium 125 L (137-145) mmol/L Chloride 93 L (98-107) mmol/L BUN 23 H (9-20) mg/dL Glucose 182 H (74-99) mg/dL POC Glucose (mg/dL) 202 H (75-99) mg/dL Phosphorus 2.3 L (2.5-4.5) mg/dL Assessment and Plan (1) CHF (congestive heart failure) Current Visit: Yes Status: Acute Code(s): I50.9 - HEART FAILURE, UNSPECIFIED SNOMED Code(s): 14305694 (2) Acute non-ST elevation myocardial infarction (NSTEMI) Current Visit: Yes Status: Acute Code(s): I21.4 - NON-ST ELEVATION (NSTEMI) MYOCARDIAL INFARCTION SNOMED Code(s): 915370357 (3) COPD (chronic obstructive pulmonary disease) Current Visit: Yes Status: Acute Code(s): J44.9 - CHRONIC OBSTRUCTIVE PULMONARY DISEASE, UNSPECIFIED SNOMED Code(s): 82115287 Plan: I'll start him on IV Lasix. His fluids have been cut back to KVO. Patient has diffuse wheezing and is being followed by a cat skinner also. Further recommendations will depend upon clinical course. Prognosis is guarded
[2018-01-30] MEDS ORDERED: FUROSEMIDE 10 MG/ML 4 ML VIAL IV SCH (10:00)
[2018-01-30] MEDS: methylPREDNISolone SOD SUCCI 40 MG/ML 1 ML VIAL IV SCH ×2 (11:10→16:17)
[2018-01-30] MEDS ORDERED: SITAGLIPTIN 50 MG PO SCH (11:15)
--- NOTE | 2018-01-30 11:42 | ECHOF ---
Referral Reason:assess LVF MEASUREMENTS -------- HEIGHT: 170.2 cm WEIGHT: 89.8 kg BP: 130/78 RVIDd: 3.9 cm (< 3.3) IVSd: 1.5 cm (0.6 - 1.1) LVIDd: 4.3 cm (3.9 - 5.3) LVPWd: 1.5 cm (0.6 - 1.1) IVSs: 1.9 cm LVIDs: 3.5 cm LVPWs: 1.7 cm LA Diam: 3.7 cm (2.7 - 3.8) LAESV Index (A-L): 24.10 ml/m Ao Diam: 3.2 cm (2.0 - 3.7) AV Cusp: 1.4 cm (1.5 - 2.6) MV EXCURSION: 18.438 mm (> 18.000) MV EF SLOPE: 160 mm/s (70 - 150) EPSS: 1.0 cm RAP: 5.00 mmHg RVSP: 55.77 mmHg FINDINGS -------- Atrial fibrillation. This was a technically difficult study with suboptimal views. The left ventricular size is normal. There is moderate concentric left ventricular hypertrophy. O verall left ventricular systolic function is mild-moderately impaired with, an EF between 40 - 45 %. Mid anteroseptal LV wall motion is hypokinetic. Apical anterior LV wall motion is hypokinetic. Apical septum LV wall motion is hypokinetic. The right ventricle is moderately enlarged. Normal LA size by volume 22+/-6 ml/m2. The right atrium is normal in size. 3 ml of Lumason was utilized for enhancement of images. The aortic valve was not well visualized. The mitral valve leaflets are mildly thickened. Mild mitral annular calcification present. Mild-t o-moderate mitral regurgitation is present. [place]-wkbcvyom tricuspid regurgitation present. There is moderate to severe pulmonary hypertensio n. The right ventricular systolic pressure, as measured by Doppler, is 55.77mmHg. The pulmonic valve was not well visualized. The aortic root size is normal. There is no pericardial effusion. CONCLUSIONS -------- 1. Atrial fibrillation. 2. This was a technically difficult study with suboptimal views. 3. The left ventricular size is normal. 4. There is moderate concentric left ventricular hypertrophy. 5. Overall left ventricular systolic function is mild-moderately impaired with, an EF between 40 - 45 %. 6. Apical anterior LV wall motion is hypokinetic. 7. Apical septum LV wall motion is hypokinetic. 8. The right ventricle is moderately enlarged. 9. Normal LA size by volume 22+/-6 ml/m2. 10. The right atrium is normal in size. 11. 3 ml of Lumason was utilized for enhancement of images. 12. The aortic valve was not well visualized. 13. The mitral valve leaflets are mildly thickened. 14. Mild mitral annular calcification present. 15. Xsys-nj-swycamvp mitral regurgitation is present. 16. Ehpj-ic-prkaslqe tricuspid regurgitation present. 17. There is moderate to severe pulmonary hypertension. 18. The right ventricular systolic pressure, as measured by Doppler, is 55.77mmHg. 19. The pulmonic valve was not well visualized. 20. The aortic root size is normal. 21. There is no pericardial effusion. RX SPECIALIST: Judith Pisano RDCS
--- NOTE | 2018-01-30 11:49 | P.PN ---
Subjective Progress Note Date: 01/30/18 Patient seen and examined at the bedside in the ICU. Patient is awake and alert. Patient apparently had a piece of pineapple stuck in his throat last night which caused him some anxiety. Patient states he can no longer feel anything stuck in his throat. Patient has chronic afib. Heart rate is in the low 100s. He was previously on Eliquis. Anticoagulation was discussed with Dr. Ornelas who stated he only once patient on Brilinta and aspirin for the next 3 weeks. Chest x-ray this morning reveals early fluid volume overload. Patient is on Lasix 20 mg daily. He does complain of shortness of breath. Patient states he wears a CPAP at night but does not know his settings. Patient 's sodium is down to 125 today, from 129. Nursing reports that the patient is drinking numerous glasses of water throughout the day. Phosphorus is 2.3 and is currently being replaced. Objective - Vital Signs Vital signs: Vital Signs Temp 97.6 F 01/30/18 08:30 Pulse 100 01/30/18 09:00 Resp 23 01/30/18 09:00 BP 130/78 01/30/18 09:00 Pulse Ox 95 01/30/18 09:00 Intake & Output 01/29/18 01/30/18 01/30/18 18:59 06:59 18:59 Intake Total 904 143 360 Output Total 550 325 0 Balance 354 -182 360 Intake: IV 474 143 360 Magnesium Sulfate-D5w Pmx 100 100 1 gm In Dextrose/Water 1 100ml.bag @ 100 mls/hr IVPB Q1H [facility] Rx#: [id number] Pressure bag for A-Line 24 3 Sodium Chloride 0.9% 1, 300 40 10 000 ml @ 75 mls/hr IV . [id number] [facility] Rx#:[id number] Sodium Phosphate 10 mmol 250 In Sodium Chloride 0.9% 250 ml @ 125 mls/hr IVPB ONCE ONE Rx#:[id number] ceFAZolin 1,000 mg In 150 Dextrose/Water 1 50ml.bag @ 100 mls/hr IVPB Q8HR [facility] Rx#:[id number] Oral 430 Output: Urine 550 325 0 Other: Voiding Method Indwelling Catheter Urinal Urinal # Voids 1 ABP, PAP, CO, CI - Last Documented Arterial Blood Pressure 105/53 - Exam GENERAL: This is a 77-year-old male in no apparent distress at the time of examination, he does appear mildly short of breath. Pleasant and cooperative. HEENT: Right IJ triple-lumen catheter noted. Head is atraumatic, normocephalic. Pupils are equal, round, and reactive to light. Sclerae anicteric. Conjunctivae are clear. Mucus membranes of the mouth are moist. Neck is supple. RESPIRATORY: Fine rales to bilateral bases. Expiratory wheezing noted. No use of accessory muscles. Patient maintaining oxygen saturation greater than 92%. No chest wall tenderness is noted on palpation or with deep breathing. CARDIOVASCULAR: Irregular rhythm. Tachycardic with a rate in the low 100s. Monitor reveals atrial fibrillation. S1 and S2 noted. No JVD noted. No S3 or S4 noted. GASTROINTESTINAL: No distention noted. Abdomen soft and round. Normal active bowel sounds auscultated x 4 quadrants. No pain or tenderness noted upon palpation. INTEGUMENTARY: Right femoral sheath site without hematoma. No cyanosis. No jaundice. No rashes noted. No cellulitis noted. EXTREMITIES: 1+ peripheral pulses. Trace bilateral lower extremity edema. No calf tenderness noted. NEUROLOGIC: Cranial nerves II-XII intact. PSYCHIATRIC: Awake, alert, and oriented X 3. Appropriate affect. Intact judgement and insight. - Labs CBC & Chem 7: 01/30/18 05:00 01/30/18 05:00 Labs: Abnormal Lab Results - Last 24 Hours (Table) 01/29/18 01/29/18 01/29/18 Range/Units 11:12 17:44 20:45 WBC (3.8-10.6) k/uL RBC (4.30-5.90) m/uL Hgb (13.0-17.5) gm/dL Hct (39.0-53.0) % Neutrophils # (1.3-7.7) k/uL Monocytes # (0-1.0) k/uL Sodium (137-145) mmol/L Chloride (98-107) mmol/L BUN (9-20) mg/dL Glucose (74-99) mg/dL POC Glucose (mg/dL) 183 H 162 H 217 H (75-99) mg/dL Phosphorus (2.5-4.5) mg/dL 01/30/18 01/30/18 01/30/18 Range/Units 05:00 05:00 07:36 WBC 15.3 H (3.8-10.6) k/uL RBC 4.01 L (4.30-5.90) m/uL Hgb 12.6 L (13.0-17.5) gm/dL Hct 37.3 L (39.0-53.0) % Neutrophils # 12.8 H (1.3-7.7) k/uL Monocytes # 1.1 H (0-1.0) k/uL Sodium 125 L (137-145) mmol/L Chloride 93 L (98-107) mmol/L BUN 23 H (9-20) mg/dL Glucose 182 H (74-99) mg/dL POC Glucose (mg/dL) 202 H (75-99) mg/dL Phosphorus 2.3 L (2.5-4.5) mg/dL Assessment and Plan Plan: ASSESSMENT: Non-ST elevated myocardial infarction, status post stent to left main coronary artery Chronic atrial fibrillation Acute exacerbation of chronic obstructive pulmonary disease Hypertension Diabetes mellitus, type II Hyperglycemia Hyperlipidemia Osteoarthritis Lumbar stenosis with neuropathy Hyponatremia PLAN: Decrease IV fluids to KVO Initiate fluid restrictions of 1200 mL daily Repeat sodium tomorrow morning Increase Lasix to 20 mg twice a day Begin IV Solu-Medrol 40 mg every 8 hours Patient takes Januvia at home which is nonformulary in the hospital. Patient's family may bring in medication Continue NovoLog sliding scale. Begin Levemir 20 units at at bedtime Patient may use hospital CPAP at . Nursing to speak with Dr. Martínez regarding patients home settings Continue aspirin and Brilinta per cardiology. Eliquis will be discontinued. Home meds as appropriate Monitor labs GI/DVT prophylaxis Monitor vital signs and address as appropriate Further recommendations pending patient's course Nurse practitioner note has been reviewed by physician. Signing provider agrees with the documented findings, assessment, and plan of care.
[2018-01-30 12:05] LABS: Glucose,Whole Blood 217 mg/dL (75-99)
[2018-01-30] MEDS: NITROGLYCERIN OINT 1 INCH/GM PACKET TOPICAL SCH ×2 (12:23→15:23)
--- NOTE | 2018-01-30 14:53 | P.PN ---
Subjective Progress Note Date: 01/30/18 Principal diagnosis: Acute non-ST segment elevated CO, coronary artery disease, severe COPD, uncontrolled diabetes mellitus with complication, obstructive sleep apnea, severe morbid obesity 01/30/2018, patient seen eval examined in the ICU critical care time spent 35 minutes, this patient has been admitted to hospital with acute non-ST segment elevated CO, patient is status post a cath and stent placement in left main, patient had an episode yesterday when he felt choking with a pineapple has some neck pain and chest pain improved this morning patient appeared to be in heart failure with increased edema and chest x-ray suggestive of fluid overload patient has received 40 mg of IV furosemide he has put out another over a liter his blood pressure is marginal but stable he remains off of vasopressors he does get short of breath on minimal activity and exertion he is currently on 2 L oxygen it appears that patient will benefit from BiPAP will order BiPAP each night and when necessary during the day also ask speech to do a swallow evaluation, labs from today reviewed WBC count is mildly elevated to 15,000 with stable hemoglobin and hematocrit sodium is down to 125, patient has been started on IV Solu-Medrol as well as the as needed bronchodilator he is also on insulin as per protocol 01/29/2018, patient seen eval reexamined during the rounds clinically patient is doing much better and the intra-aortic balloon pump has been removed, patient has been off of levo fed drip, breathing comfortably but does require supplemental oxygen get short of breath without oxygen and does desaturate denies any chest pain at this point of time the triple-lumen catheter site is intact in the right neck, care plan discussed with the nursing staff at length, and agree with keeping patient in ICU for now with further recommendations pending we'll keep the central line given patient has very poor peripheral venous access 77-year-old male well-known to me from history of COPD and sleep disorder breathing and sleep apnea patient has been having issues associated with bandlike chest pain off and on for almost a week comes to appointment that he was seen eval reexamined at primary care office advised to be admitted at [facility] where he was found to have ST segment depression as well as elevated troponins and patient was transferred to [facility] for more definitive intervention patient has been evaluated by cardiovascular surgery as well as cardiology underwent cardiac cath and angiogram and stent in proximal left main has been placed by interventional cardiology. Patient also has the intra- aortic balloon pump currently set at right femoral vein patient does not have any IV axis and has been on now for mics of levo fed drip with marginal blood pressure systolic of 90, on specific questioning patient is currently pain-free does feel weak in general denies any cough or sputum production denies any significant shortness of breath Objective - Vital Signs Vital signs: Vital Signs Temp 97.6 F 01/30/18 08:30 Pulse 106 H 01/30/18 14:00 Resp 19 01/30/18 14:00 BP 96/54 01/30/18 14:00 Pulse Ox 93 L 01/30/18 14:00 Intake & Output 01/29/18 01/30/18 01/30/18 18:59 06:59 18:59 Intake Total 904 143 360 Output Total 550 325 0 Balance 354 -182 360 Weight 90 kg Intake: IV 474 143 360 Magnesium Sulfate-D5w Pmx 100 100 1 gm In Dextrose/Water 1 100ml.bag @ 100 mls/hr IVPB Q1H [facility] Rx#: [id number] Pressure bag for A-Line 24 3 Sodium Chloride 0.9% 1, 300 40 10 000 ml @ 75 mls/hr IV . [id number] [facility] Rx#:[id number] Sodium Phosphate 10 mmol 250 In Sodium Chloride 0.9% 250 ml @ 125 mls/hr IVPB ONCE ONE Rx#:[id number] ceFAZolin 1,000 mg In 150 Dextrose/Water 1 50ml.bag @ 100 mls/hr IVPB Q8HR [facility] Rx#:[id number] Oral 430 Output: Urine 550 325 0 Other: Voiding Method Indwelling Catheter Urinal Urinal # Voids 1 2 ABP, PAP, CO, CI - Last Documented Arterial Blood Pressure 105/53 - Exam - Constitutional General appearance: disheveled, morbidly obese, no acute distress - EENT Eyes: EOMI, PERRLA, normal appearance ENT: hearing grossly normal, normal oropharynx Ears: bilateral: normal - Neck Carotids: bilateral: upstroke normal Thyroid: bilateral: normal size - Respiratory Respiratory: bilateral: CTA - Cardiovascular Heart sounds: normal: S1, S2 - Gastrointestinal General gastrointestinal: decreased bowel sounds, distended, soft - Neurologic Neurologic: CNII-XII intact - Musculoskeletal Musculoskeletal: gait normal, generalized weakness, strength equal bilaterally - Psychiatric Psychiatric: A&O x's 3, appropriate affect, intact judgment & insight - Labs CBC & Chem 7: 01/30/18 05:00 01/30/18 05:00 Labs: Abnormal Lab Results - Last 24 Hours (Table) 01/29/18 01/29/18 01/30/18 Range/Units 17:44 20:45 05:00 WBC 15.3 H (3.8-10.6) k/uL RBC 4.01 L (4.30-5.90) m/uL Hgb 12.6 L (13.0-17.5) gm/dL Hct 37.3 L (39.0-53.0) % Neutrophils # 12.8 H (1.3-7.7) k/uL Monocytes # 1.1 H (0-1.0) k/uL Sodium (137-145) mmol/L Chloride (98-107) mmol/L BUN (9-20) mg/dL Glucose (74-99) mg/dL POC Glucose (mg/dL) 162 H 217 H (75-99) mg/dL Phosphorus (2.5-4.5) mg/dL 01/30/18 01/30/18 01/30/18 Range/Units 05:00 07:36 12:03 WBC (3.8-10.6) k/uL RBC (4.30-5.90) m/uL Hgb (13.0-17.5) gm/dL Hct (39.0-53.0) % Neutrophils # (1.3-7.7) k/uL Monocytes # (0-1.0) k/uL Sodium 125 L (137-145) mmol/L Chloride 93 L (98-107) mmol/L BUN 23 H (9-20) mg/dL Glucose 182 H (74-99) mg/dL POC Glucose (mg/dL) 202 H 217 H (75-99) mg/dL Phosphorus 2.3 L (2.5-4.5) mg/dL Assessment and Plan Assessment: Acute non-ST segment elevated CO Acute systolic heart failure ejection fraction of 40% related to coronary artery disease and ischemic cardiomyopathy Diffuse coronary artery disease with the occlusion of left main COPD severe with possible exacerbation cannot be excluded Intermittent episodes of choking with food Obstructive sleep apnea Morbid obesity Type 2 diabetes mellitus with complication and uncontrolled hyperglycemia Severe morbid obesity Plan: Speech to do swallow evaluation Agree with IV steroids Gentle diuresis As needed breathing treatments Hemodynamic support as tolerated, observe off of pressors however if map comes down less than 65 would start vasopressors Monitor urine output We'll keep the central line in for now Type 2 diabetes mellitus management Hypertension hypertensive cardiovascular disease management BiPAP support as needed during the day and each night during sleep Labs medication radiographic studies reviewed at length, critical care time spent 35 minutes Time with Patient: Greater than 30
[2018-01-30 17:44] LABS: Glucose,Whole Blood 268 mg/dL (75-99)
[2018-01-30] MEDS: GABAPENTIN 100 MG CAP PO SCH (20:37)
[2018-01-30] MEDS: HEPARIN SODIUM,PORCINE 5,000 UNIT/ML 1 ML VIAL SQ SCH (20:37)
[2018-01-30] MEDS: ATORVASTATIN 80 MG TAB PO SCH (20:37)
[2018-01-30] MEDS: FUROSEMIDE 10 MG/ML 4 ML VIAL IV SCH (20:37)
[2018-01-30 20:59] LABS: Glucose,Whole Blood 342 mg/dL (75-99)
[2018-01-30] MEDS: INSULIN DETEMIR 100 UNIT/ML 10 ML VIAL SQ SCH (21:26)
[2018-01-30] MEDS: LOSARTAN 25 MG TAB PO SCH (22:00)
[2018-01-30 23:41] LABS: Glucose,Whole Blood 286 mg/dL (75-99)
[2018-01-31 01:20] LABS: Glucose,Whole Blood 239 mg/dL (75-99)
[2018-01-31] MEDS: methylPREDNISolone SOD SUCCI 40 MG/ML 1 ML VIAL IV SCH ×3 (01:23→20:42)
[2018-01-31] MEDS: NITROGLYCERIN OINT 1 INCH/GM PACKET TOPICAL SCH ×3 (01:23→17:07)
[2018-01-31] MEDS: INSULIN ASPART 100 UNIT/ML 1 ML 10 ML VIAL SQ SCH ×6 (01:23→21:17)
[2018-01-31 04:31] LABS: Anion Gap 7 mmol/L; Blood Urea Nitrogen 30 mg/dL (9-20); Calcium 9.2 mg/dL (8.4-10.2); Carbon Dioxide 29 mmol/L (22-30); Chloride 96 mmol/L (98-107); Glucose 196 mg/dL (74-99); Magnesium 2.1 mg/dL (1.6-2.3); Phosphorus 2.3 mg/dL (2.5-4.5); Potassium 4.2 mmol/L (3.5-5.1); Sodium 132 mmol/L (137-145)
[2018-01-31 05:05] LABS: Basophils % (A) 0 %; Eosinophils % (A) 0 %; HCT 39.6 % (39.0-53.0); HGB 13.4 gm/dL (13.0-17.5); Lymphocytes # (A) 0.7 k/uL (1.0-4.8); Lymphocytes % (A) 7 %; MCH 31.7 pg (25.0-35.0); MCHC 33.8 g/dL (31.0-37.0); MCV 93.9 fL (80.0-100.0); Mean Platelet Volume 7.4; Monocytes # (A) 0.6 k/uL (0-1.0); Monocytes % (A) 6 %; Neutrophils # (A) 9.3 k/uL (1.3-7.7); Neutrophils % (A) 87 %; Platelet Count 200 k/uL (150-450); RBC 4.22 m/uL (4.30-5.90); RDW 13.5 % (11.5-15.5); WBC 10.7 k/uL (3.8-10.6)
[2018-01-31] MEDS: LEVOTHYROXINE 75 MCG TAB PO SCH (06:52)
[2018-01-31] MEDS: PANTOPRAZOLE 40 MG TABLET PO SCH ×2 (06:53→17:30)
[2018-01-31 06:58] LABS: Glucose,Whole Blood 211 mg/dL (75-99)
--- NOTE | 2018-01-31 07:03 | XR ---
EXAMINATION TYPE: XR chest 1V portable DATE OF EXAM: 01/31/2018 HISTORY: SOB with cough. REFERENCE: Previous study dated 01/30/2018. FINDINGS: There is a right internal jugular catheter in place. Its tip is in the superior vena cava. Heart size upper limits of normal. There is increased opacity at both lung bases which I suspect may represent a layering effusion. Underlying airspace disease is not entirely excluded. Volume status ap pears improved. IMPRESSION: BIBASILAR OPACITIES MAY REPRESENT EARLY AIRSPACE DISEASE OR MAY REPRESENT LAYERING EFFUSIONS.
[2018-01-31] MEDS: ASPIRIN 81 MG PO SCH (08:17)
[2018-01-31] MEDS: TICAGRELOR 90 MG TAB PO SCH ×2 (08:17→21:20)
[2018-01-31] MEDS: FUROSEMIDE 10 MG/ML 4 ML VIAL IV SCH ×2 (08:18→20:48)
[2018-01-31] MEDS: HEPARIN SODIUM,PORCINE 5,000 UNIT/ML 1 ML VIAL SQ SCH ×2 (08:18→20:46)
[2018-01-31] MEDS: METOPROLOL TARTRATE 50 MG TAB PO SCH ×2 (08:18→21:20)
[2018-01-31] MEDS: JANUVIA 50 MG PO SCH (09:03)
--- NOTE | 2018-01-31 09:10 | P.PN ---
Subjective Progress Note Date: 01/31/18 Principal diagnosis: Acute non-ST segment elevated [place], coronary artery disease, severe COPD, uncontrolled diabetes mellitus with complication, obstructive sleep apnea, severe morbid obesity Ammann COPD exacerbation, acute heart failure related to acute systolic heart failure 01/31/2018, patient seen eval examined during the rounds clinically patient has been doing relatively better and no choking episode has been noted patient has been swallowing fairly well, breathing more comfortably denies any chest pain labs and medications reviewed from today care plan discussed with the patient patient niece as well as staff at length and primary service a chest x-ray revealed bibasilar atelectasis versus infiltrate and small effusion with interstitial edema and stable triple-lumen catheter, labs reviewed hyponatremia has improved now is 132 kidney functions show some component of prerenal azotemia with borderline hyperglycemia, will start tapering down the steroids as well 01/30/2018, patient seen eval examined in the ICU critical care time spent 35 minutes, this patient has been admitted to hospital with acute non-ST segment elevated WA, patient is status post a cath and stent placement in left main, patient had an episode yesterday when he felt choking with a pineapple has some neck pain and chest pain improved this morning patient appeared to be in heart failure with increased edema and chest x-ray suggestive of fluid overload patient has received 40 mg of IV furosemide he has put out another over a liter his blood pressure is marginal but stable he remains off of vasopressors he does get short of breath on minimal activity and exertion he is currently on 2 L oxygen it appears that patient will benefit from BiPAP will order BiPAP each night and when necessary during the day also ask speech to do a swallow evaluation, labs from today reviewed WBC count is mildly elevated to 15,000 with stable hemoglobin and hematocrit sodium is down to 125, patient has been started on IV Solu-Medrol as well as the as needed bronchodilator he is also on insulin as per protocol 01/29/2018, patient seen eval reexamined during the rounds clinically patient is doing much better and the intra-aortic balloon pump has been removed, patient has been off of levo fed drip, breathing comfortably but does require supplemental oxygen get short of breath without oxygen and does desaturate denies any chest pain at this point of time the triple-lumen catheter site is intact in the right neck, care plan discussed with the nursing staff at length, and agree with keeping patient in ICU for now with further recommendations pending we'll keep the central line given patient has very poor peripheral venous access 77-year-old male well-known to me from history of COPD and sleep disorder breathing and sleep apnea patient has been having issues associated with bandlike chest pain off and on for almost a week comes to appointment that he was seen eval reexamined at primary care office advised to be admitted at [facility] where he was found to have ST segment depression as well as elevated troponins and patient was transferred to [facility] for more definitive intervention patient has been evaluated by cardiovascular surgery as well as cardiology underwent cardiac cath and angiogram and stent in proximal left main has been placed by interventional cardiology. Patient also has the intra- aortic balloon pump currently set at right femoral vein patient does not have any IV axis and has been on now for mics of levo fed drip with marginal blood pressure systolic of 90, on specific questioning patient is currently pain-free does feel weak in general denies any cough or sputum production denies any significant shortness of breath Objective - Vital Signs Vital signs: Vital Signs Temp 97.7 F 01/31/18 08:00 Pulse 120 H 01/31/18 08:00 Resp 24 01/31/18 08:00 BP 115/71 01/31/18 08:00 Pulse Ox 96 01/31/18 08:00 Intake & Output 01/30/18 01/31/18 01/31/18 18:59 06:59 18:59 Intake Total 1360 125 Output Total 900 0 0 Balance 460 0 125 Weight 90 kg 97.069 kg Intake: IV 360 5 Magnesium Sulfate-D5w Pmx 100 1 gm In Dextrose/Water 1 100ml.bag @ 100 mls/hr IVPB Q1H [facility] Rx#: [id number] Sodium Chloride 0.9% 1, 10 000 ml @ 75 mls/hr IV . [id number] [facility] Rx#:[id number] Sodium Phosphate 10 mmol 250 In Sodium Chloride 0.9% 250 ml @ 125 mls/hr IVPB ONCE ONE Rx#:[id number] ns 5 Oral 1000 120 Output: Urine 900 0 0 Other: Voiding Method Urinal Bedside Commode # Voids 1 0 0 # Bowel Movements 1 ABP, PAP, CO, CI - Last Documented Arterial Blood Pressure 105/53 - Exam - Constitutional General appearance: disheveled, morbidly obese, no acute distress - EENT Eyes: EOMI, PERRLA, normal appearance ENT: hearing grossly normal, normal oropharynx Ears: bilateral: normal - Neck Carotids: bilateral: upstroke normal Thyroid: bilateral: normal size - Respiratory Respiratory: bilateral: CTA - Cardiovascular Heart sounds: normal: S1, S2 - Gastrointestinal General gastrointestinal: decreased bowel sounds, distended, soft - Neurologic Neurologic: CNII-XII intact - Musculoskeletal Musculoskeletal: gait normal, generalized weakness, strength equal bilaterally - Psychiatric Psychiatric: A&O x's 3, appropriate affect, intact judgment & insight - Labs CBC & Chem 7: 01/31/18 04:14 01/31/18 04:14 Labs: Abnormal Lab Results - Last 24 Hours (Table) 01/30/18 01/30/18 01/30/18 Range/Units 12:03 17:42 20:39 WBC (3.8-10.6) k/uL RBC (4.30-5.90) m/uL Neutrophils # (1.3-7.7) k/uL Lymphocytes # (1.0-4.8) k/uL Sodium (137-145) mmol/L Chloride (98-107) mmol/L BUN (9-20) mg/dL Glucose (74-99) mg/dL POC Glucose (mg/dL) 217 H 268 H 342 H (75-99) mg/dL Phosphorus (2.5-4.5) mg/dL 01/30/18 01/31/18 01/31/18 Range/Units 23:40 01:18 04:14 WBC 10.7 H (3.8-10.6) k/uL RBC 4.22 L (4.30-5.90) m/uL Neutrophils # 9.3 H (1.3-7.7) k/uL Lymphocytes # 0.7 L (1.0-4.8) k/uL Sodium (137-145) mmol/L Chloride (98-107) mmol/L BUN (9-20) mg/dL Glucose (74-99) mg/dL POC Glucose (mg/dL) 286 H 239 H (75-99) mg/dL Phosphorus (2.5-4.5) mg/dL 01/31/18 01/31/18 Range/Units 04:14 06:56 WBC (3.8-10.6) k/uL RBC (4.30-5.90) m/uL Neutrophils # (1.3-7.7) k/uL Lymphocytes # (1.0-4.8) k/uL Sodium 132 L (137-145) mmol/L Chloride 96 L (98-107) mmol/L BUN 30 H (9-20) mg/dL Glucose 196 H (74-99) mg/dL POC Glucose (mg/dL) 211 H (75-99) mg/dL Phosphorus 2.3 L (2.5-4.5) mg/dL Assessment and Plan Assessment: Acute non-ST segment elevated [place] Small bilateral pleural effusion likely related to acute systolic heart failure Basal atelectasis related to effusion and congestive heart failure Acute systolic heart failure ejection fraction of 40% related to coronary artery disease and ischemic cardiomyopathy Diffuse coronary artery disease with the occlusion of left main COPD severe with exacerbation Intermittent episodes of choking with food Obstructive sleep apnea Morbid obesity Type 2 diabetes mellitus with complication and uncontrolled hyperglycemia Severe morbid obesity Plan: Agree with IV steroids, continue taper down as tolerated Gentle diuresis As needed breathing treatments Hemodynamic support as tolerated, observe off of pressors however if map comes down less than 65 would start vasopressors Monitor urine output We'll keep the central line in for now Type 2 diabetes mellitus management Hypertension hypertensive cardiovascular disease management BiPAP support as needed during the day and each night during sleep, patient used it at last night, getting more comfortable Labs medication radiographic studies reviewed at length, critical care time spent 35 minutes Time with Patient: Greater than 30
--- NOTE | 2018-01-31 09:43 | PN ---
PROGRESS NOTE This is an ICU note. I saw the patient at the bedside today. He is feeling much better. Much less shortness of breath. No chest pain. Feeling much more comfortable. This is a gentleman who was brought in with acute chest tightness to [facility]. At that time, he developed crushing chest pain, developed elevated troponins. Sent down to ICU, placed on a heparin drip and nitroglycerin paste with resolution. After evaluation by Dr. NORMA Ornelas, both agreed to transfer him here for cardiac catheterization. He went through cardiac catheterization with a bypass team present on 01/29 and was found to have a non ST segmental elevated myocardial infection with stenting of the left main coronary artery with success. At this time patient continues to do well. Yesterday, the balloon pump was pulled. The patient has felt well ever since. Echocardiogram followup at this time shows is evidence of chronic atrial fib, ejection fracture between 40 and 45%. The left ventricular hypertrophy, some apical anterior LV motion hypokinesia along with septum wall motion hypokinesia. At this time lab work today shows a WBC of 10.7, hemoglobin is 13.4, creatinine 0.78 with a 30 BUN. Sugars are in the 200 range being treated with p.o. medications and insulin to scale. We started him on some IV steroids which we are using to the help. He is on his CPAP machine at night. REVIEW OF SYSTEMS: At this very time. Eyes are fine. ENT is no problem with throat swelling anymore. RESPIRATORY: Minimal shortness of breath. CARDIAC: No chest pain. No palpitations. GI is negative. is within normal limits. No problems urinating. Having a little bit of musculoskeletal back pain. Otherwise within normal limits. PHYSICAL EXAMINATION: For vital signs show blood pressure 114/75, heart rate is in the 90s. EYES: Pupils are equal, round, react to light to light accommodation. ENT showed tympanic membranes and pharynx negative. NECK: Supple. Midline trachea. Chest is essentially clear to auscultation. Heart is sinus rhythm with no murmur. Abdomen is soft, nontender with no organomegaly. Extremities are negative. ASSESSMENT: At this time shows: 1. Acute myocardial infarction. 2. Exacerbation of chronic obstructive pulmonary disease, which is stable. 3. Type 2 diabetes, well-controlled. 4. Hypertension. 5. Morbid obesity. 6. Sleep apnea. 7. Stent placement for occlusion of the left main. 8. He has ejection fracture of 40% with ischemic cardiomyopathy. PLAN: Continue with the same medications. Control blood sugars. Please refer my orders. MMODL / IJN: [id number] /
--- NOTE | 2018-01-31 11:36 | P.OP ---
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 He was eating his dinner and a piece of pineapple gas tech in his throat. He feels that the pineapple is still stuck in his throat and I've been asked to evaluate his hypopharynx to make sure there is no foreign body. Operative Findings: Patient has uvular edema which appears to be the etiology of his globus pharyngeus. There is no evidence of any foreign body. Description of Procedure: An EF GP nasopharyngoscope was inserted into the patient's left naris and followed the floor the nose to the nasopharynx. There is no evidence of any nasopharyngeal pathology. There was some scant sinus drainage and crusting intranasally from a nasal cannula O2. The oropharynx shows some uvular edema with no evidence of any tumors or masses. The hypopharynx including the Slade of tongue, vallecula, epiglottis, lateral pharynx, true and false vocal cords, postcricoid space, all appeared to be unremarkable. Again, the etiology for his globus pharyngeus appears to be from his uvular edema.
--- NOTE | 2018-01-31 11:40 | P.GSCN ---
History of Present Illness Consult date: 01/31/18 Reason for Consult: Feeling of a foreign body in his throat i.e. a pineapple Requesting physician: Garo Chua History of present illness: This patient is a very pleasant 77-year-old white male who had a central line inserted on the right side of his neck. This required anesthetization of this area. He had a dinner and feels a piece of pineapple stuck in his throat and mobile leave. He feels removing in the back of his throat and I've been asked to evaluate his throat to rule out a foreign body. Review of Systems - Constitutional Reports lethargy - EENT Ears, nose, mouth and throat: Denies ant. neck pain, Denies bleeding gums, Denies dental pain, Denies mouth pain - Respiratory Denies cough - Gastrointestinal Denies bloating - Genitourinary Denies flank pain - Musculoskeletal Denies fractures - Neurological Denies change in speech, Denies confusion - Psychiatric Denies anxiety Past Medical History Past Medical History: Atrial Fibrillation, Coronary Artery Disease (CAD), COPD, Diabetes Mellitus, GERD/Reflux, Hypertension, Thyroid Disorder History of Any Multi-Drug Resistant Organisms: None Reported Past Surgical History: Back Surgery, Heart Catheterization With Stent, Orthopedic Surgery Additional Past Surgical History / Comment(s): SHOULDER & WRIST SURGERY Past Anesthesia/Blood Transfusion Reactions: No Reported Reaction Date of Last Stent Placement:: 01/28/18 Smoking Status: Former smoker - Past Family History Father History Unknown: Yes Additional Family Medical History / Comment(s): FAMILY HISTORY UNKNOWN. Medications and Allergies Home Medications Medication Instructions Recorded Confirmed Type Furosemide [Lasix] 20 mg PO DAILY 01/28/18 01/28/18 History Gabapentin [Neurontin] 100 mg PO DAILY 01/28/18 01/28/18 History Levothyroxine Sodium [Synthroid] 150 mcg PO DAILY 01/28/18 01/28/18 History Metoprolol Tartrate 25 mg PO BID 01/28/18 01/28/18 History Albuterol Inhaler [Ventolin Hfa 1 - 2 puff INHALATION RT-Q6H PRN 01/30/18 History Inhaler] sitaGLIPtin [Januvia] 50 mg PO DAILY 01/30/18 01/30/18 History Allergies Allergy/AdvReac Type Severity Reaction Status Date / Time cortisone Allergy Swelling Verified 01/28/18 10:58 Surgical - Exam Osteopathic Statement: *. No significant issues noted on an osteopathic structural exam other than those noted in the History and Physical/Consult. Vital Signs Pulse Pulse Ox 92 93 L 01/28/18 09:43 01/28/18 09:43 - General well developed, well nourished, no distress, chronically ill - Eyes Head is normocephalic the face is symmetric there's no abnormal movements is no tenderness to the sinuses are mastoids is no nodules or eruptions or parasites on scalp. Auricles well formed canals are clear the tympanic members are without bulging or retraction. Nose is patent with some intranasal crusting from the nasal cannula oxygen. Mouth and throat reveals no tumors or masses there is a large amount of uvular edema. Neck shows no tumors or masses the central line is located on the right side. PERRL, normal ocular movement - ENT normal pinna, no congestion - Neck no masses, no bruits, trachea midline, no lymphadectomy, no venous distension - Respiratory normal expansion - Integumentary no rash, no growths - Musculoskeletal normal gait, normal posture - Psychiatric oriented to time, oriented to person, oriented to place, speech is normal, memory intact Results - Labs 01/31/18 04:14 01/31/18 04:14 Abnormal Lab Results - Last 24 Hours (Table) 01/30/18 01/30/18 01/30/18 Range/Units 12:03 17:42 20:39 WBC (3.8-10.6) k/uL RBC (4.30-5.90) m/uL Neutrophils # (1.3-7.7) k/uL Lymphocytes # (1.0-4.8) k/uL Sodium (137-145) mmol/L Chloride (98-107) mmol/L BUN (9-20) mg/dL Glucose (74-99) mg/dL POC Glucose (mg/dL) 217 H 268 H 342 H (75-99) mg/dL Phosphorus (2.5-4.5) mg/dL 01/30/18 01/31/18 01/31/18 Range/Units 23:40 01:18 04:14 WBC 10.7 H (3.8-10.6) k/uL RBC 4.22 L (4.30-5.90) m/uL Neutrophils # 9.3 H (1.3-7.7) k/uL Lymphocytes # 0.7 L (1.0-4.8) k/uL Sodium (137-145) mmol/L Chloride (98-107) mmol/L BUN (9-20) mg/dL Glucose (74-99) mg/dL POC Glucose (mg/dL) 286 H 239 H (75-99) mg/dL Phosphorus (2.5-4.5) mg/dL 01/31/18 01/31/18 Range/Units 04:14 06:56 WBC (3.8-10.6) k/uL RBC (4.30-5.90) m/uL Neutrophils # (1.3-7.7) k/uL Lymphocytes # (1.0-4.8) k/uL Sodium 132 L (137-145) mmol/L Chloride 96 L (98-107) mmol/L BUN 30 H (9-20) mg/dL Glucose 196 H (74-99) mg/dL POC Glucose (mg/dL) 211 H (75-99) mg/dL Phosphorus 2.3 L (2.5-4.5) mg/dL Diabetes panel 01/31/18 Range/Units 04:14 Sodium 132 L (137-145) mmol/L Potassium 4.2 (3.5-5.1) mmol/L Chloride 96 L (98-107) mmol/L Carbon Dioxide 29 (22-30) mmol/L BUN 30 H (9-20) mg/dL Creatinine 0.78 (0.66-1.25) mg/dL Glucose 196 H (74-99) mg/dL Calcium 9.2 (8.4-10.2) mg/dL Calcium panel 01/31/18 Range/Units 04:14 Calcium 9.2 (8.4-10.2) mg/dL Phosphorus 2.3 L (2.5-4.5) mg/dL Pituitary panel 01/31/18 Range/Units 04:14 Sodium 132 L (137-145) mmol/L Potassium 4.2 (3.5-5.1) mmol/L Chloride 96 L (98-107) mmol/L Carbon Dioxide 29 (22-30) mmol/L BUN 30 H (9-20) mg/dL Creatinine 0.78 (0.66-1.25) mg/dL Glucose 196 H (74-99) mg/dL Calcium 9.2 (8.4-10.2) mg/dL Adrenal panel 01/31/18 Range/Units 04:14 Sodium 132 L (137-145) mmol/L Potassium 4.2 (3.5-5.1) mmol/L Chloride 96 L (98-107) mmol/L Carbon Dioxide 29 (22-30) mmol/L BUN 30 H (9-20) mg/dL Creatinine 0.78 (0.66-1.25) mg/dL Glucose 196 H (74-99) mg/dL Calcium 9.2 (8.4-10.2) mg/dL Assessment and Plan (1) Globus pharyngeus Current Visit: Yes Status: Acute Code(s): F45.8 - OTHER SOMATOFORM DISORDERS SNOMED Code(s): 02394630 (2) Uvular edema Current Visit: Yes Status: Acute Code(s): K13.79 - OTHER LESIONS OF ORAL MUCOSA SNOMED Code(s): 164501097 Plan: This patient's fullness pharyngeus appears to be from some uvular edema. The use of cold ice chips and/or gargling with ice water was encouraged. I think this will be self-limiting and no further treatment or follow-up will be needed. Time with Patient: Greater than 30
[2018-01-31 12:06] LABS: Glucose,Whole Blood 314 mg/dL (75-99)
[2018-01-31 12:23] LABS: Glucose,Whole Blood 304 mg/dL (75-99)
--- NOTE | 2018-01-31 12:37 | P.PN ---
Subjective Progress Note Date: 01/31/18 Principal diagnosis: Acute coronary event This is a pleasant 77-year-old gentleman who presented to the hospital with a chest discomfort and underwent a heart catheterization and stenting of the left main. I'll follow-up with him today, he denies having any chest pain or chest discomfort or shortness of breath. He continues to be in atrial fibrillation with heart rate around 100 beats per minutes. The patient is not a candidate to have any oral anticoagulation because of history of GI bleeding in the past. The echocardiogram revealed impaired LV function with EF around 40%. Objective - Vital Signs Vital signs: Vital Signs Temp 97.7 F 01/31/18 08:00 Pulse 107 H 01/31/18 11:00 Resp 15 01/31/18 11:00 BP 109/54 01/31/18 11:00 Pulse Ox 93 L 01/31/18 11:00 Intake & Output 01/30/18 01/31/18 01/31/18 18:59 06:59 18:59 Intake Total 1360 140 Output Total 900 0 0 Balance 460 0 140 Weight 90 kg 97.069 kg Intake: IV 360 20 Magnesium Sulfate-D5w Pmx 100 1 gm In Dextrose/Water 1 100ml.bag @ 100 mls/hr IVPB Q1H [facility] Rx#: [id number] Sodium Chloride 0.9% 1, 10 000 ml @ 75 mls/hr IV . [id number] [facility] Rx#:[id number] Sodium Phosphate 10 mmol 250 In Sodium Chloride 0.9% 250 ml @ 125 mls/hr IVPB ONCE ONE Rx#:[id number] ns 20 Oral 1000 120 Output: Urine 900 0 0 Other: Voiding Method Urinal Bedside Commode Bedside Commode # Voids 1 0 0 # Bowel Movements 1 ABP, PAP, CO, CI - Last Documented Arterial Blood Pressure 105/53 - Constitutional General appearance: Present: no acute distress - Respiratory Respiratory: bilateral: CTA - Cardiovascular Rhythm: irregularly irregular Heart sounds: normal: S1, S2 - Labs CBC & Chem 7: 01/31/18 04:14 01/31/18 04:14 Labs: Abnormal Lab Results - Last 24 Hours (Table) 01/30/18 01/30/18 01/30/18 Range/Units 17:42 20:39 23:40 WBC (3.8-10.6) k/uL RBC (4.30-5.90) m/uL Neutrophils # (1.3-7.7) k/uL Lymphocytes # (1.0-4.8) k/uL Sodium (137-145) mmol/L Chloride (98-107) mmol/L BUN (9-20) mg/dL Glucose (74-99) mg/dL POC Glucose (mg/dL) 268 H 342 H 286 H (75-99) mg/dL Phosphorus (2.5-4.5) mg/dL 01/31/18 01/31/18 01/31/18 Range/Units 01:18 04:14 04:14 WBC 10.7 H (3.8-10.6) k/uL RBC 4.22 L (4.30-5.90) m/uL Neutrophils # 9.3 H (1.3-7.7) k/uL Lymphocytes # 0.7 L (1.0-4.8) k/uL Sodium 132 L (137-145) mmol/L Chloride 96 L (98-107) mmol/L BUN 30 H (9-20) mg/dL Glucose 196 H (74-99) mg/dL POC Glucose (mg/dL) 239 H (75-99) mg/dL Phosphorus 2.3 L (2.5-4.5) mg/dL 01/31/18 01/31/18 01/31/18 Range/Units 06:56 12:05 12:22 WBC (3.8-10.6) k/uL RBC (4.30-5.90) m/uL Neutrophils # (1.3-7.7) k/uL Lymphocytes # (1.0-4.8) k/uL Sodium (137-145) mmol/L Chloride (98-107) mmol/L BUN (9-20) mg/dL Glucose (74-99) mg/dL POC Glucose (mg/dL) 211 H 314 H 304 H (75-99) mg/dL Phosphorus (2.5-4.5) mg/dL Assessment and Plan Assessment: assessment #1 coronary artery disease and status post a stenting of the left main #2 impaired LV function with EF of 40% #3 chronic atrial fibrillation #4 history of GI bleeding Plan #1 continue the current medical regimen including dual antiplatelet therapy #2 from the cardiac standpoint the patient can be transferred to the floor.
[2018-01-31 17:31] LABS: Glucose,Whole Blood 175 mg/dL (75-99)
[2018-01-31 21:16] LABS: Glucose,Whole Blood 211 mg/dL (75-99)
[2018-01-31 21:16] LABS: Glucose,Whole Blood 246 mg/dL (75-99)
[2018-01-31] MEDS: INSULIN DETEMIR 100 UNIT/ML 10 ML VIAL SQ SCH (21:18)
[2018-01-31] MEDS: GABAPENTIN 100 MG CAP PO SCH (21:19)
[2018-01-31] MEDS: ATORVASTATIN 80 MG TAB PO SCH (21:19)
[2018-01-31] MEDS: LOSARTAN 25 MG TAB PO SCH (22:50)
[2018-02-01] MEDS: NITROGLYCERIN OINT 1 INCH/GM PACKET TOPICAL SCH ×3 (00:33→17:16)
[2018-02-01 04:26] LABS: Basophils % (A) 0 %; Eosinophils # (A) 0.1 k/uL (0-0.7); Eosinophils % (A) 1 %; HCT 37.6 % (39.0-53.0); HGB 12.7 gm/dL (13.0-17.5); Lymphocytes # (A) 1.2 k/uL (1.0-4.8); Lymphocytes % (A) 7 %; MCH 31.4 pg (25.0-35.0); MCHC 33.7 g/dL (31.0-37.0); MCV 93.2 fL (80.0-100.0); Mean Platelet Volume 7.4; Monocytes # (A) 0.9 k/uL (0-1.0); Monocytes % (A) 5 %; Neutrophils # (A) 15.3 k/uL (1.3-7.7); Neutrophils % (A) 87 %; Platelet Count 249 k/uL (150-450); RBC 4.03 m/uL (4.30-5.90); RDW 13.9 % (11.5-15.5); WBC 17.5 k/uL (3.8-10.6)
[2018-02-01 04:51] LABS: Calcium 9.5 mg/dL (8.4-10.2); Magnesium 2.1 mg/dL (1.6-2.3); Potassium 4.3 mmol/L (3.5-5.1)
--- NOTE | 2018-02-01 05:49 | XR ---
EXAMINATION TYPE: XR chest 1V portable DATE OF EXAM: 02/01/2018 HISTORY: SOB with cough. REFERENCE: Previous study dated 01/31/2018. FINDINGS: The patient's right internal jugular catheter remains in place, unchanged in appearance. There are bibasilar opacities. There is left basilar airspace disease. The heart is not enlarged. IMPRESSION: 1. LEFT BASILAR AIRSPACE DISEASE MAY REPRESENT ATELECTASIS OR PNEUMONIA. 2. BILATERAL LOWER LOBE OPACITIES MAY REPRESENT EARLY AIRSPACE DISEASE OR LAYERING EFFUSIONS. THERE H BEEN NO INTERVAL CHANGE IN THE APPEARANCE THE CHEST.
[2018-02-01] MEDS: LEVOTHYROXINE 75 MCG TAB PO SCH (05:57)
[2018-02-01 06:03] LABS: Glucose,Whole Blood 171 mg/dL (75-99)
[2018-02-01] MEDS: INSULIN ASPART 100 UNIT/ML 1 ML 10 ML VIAL SQ SCH ×4 (06:05→22:23)
--- NOTE | 2018-02-01 07:46 | P.PN ---
Subjective Progress Note Date: 02/01/18 Principal diagnosis: Acute coronary event This is a pleasant 77-year-old gentleman who presented to the hospital with a chest discomfort and underwent a heart catheterization and stenting of the left main. I'll follow-up with him today, he denies having any chest pain or chest discomfort or shortness of breath. He continues to be in atrial fibrillation with heart rate around 100 beats per minutes. The patient is not a candidate to have any oral anticoagulation because of history of GI bleeding in the past. The echocardiogram revealed impaired LV function with EF around 40%. The heart rate continues to be slightly elevated with a resting heart rate around 110 bpm and the patient is in atrial fibrillation. I am going to add digoxin to the current medical regimen. I would not increase the dose of metoprolol because of the marginally low blood pressure. Objective - Vital Signs Vital signs: Vital Signs Temp 97.6 F 02/01/18 04:00 Pulse 110 H 02/01/18 07:00 Resp 16 02/01/18 07:00 BP 106/66 02/01/18 06:00 Pulse Ox 97 02/01/18 04:00 Intake & Output 01/31/18 02/01/18 02/01/18 18:59 06:59 18:59 Intake Total 655 535 245 Output Total 600 350 Balance 55 185 245 Weight 97.2 kg 97.4 kg Intake: IV 55 45 5 ns 55 45 5 Oral 600 490 240 Output: Urine 600 350 Other: Voiding Method Bedside Commode Bedside Commode # Voids 0 0 # Bowel Movements 1 ABP, PAP, CO, CI - Last Documented Arterial Blood Pressure 105/53 - Constitutional General appearance: Present: no acute distress - Respiratory Respiratory: bilateral: CTA - Cardiovascular Rhythm: irregularly irregular Heart sounds: normal: S1, S2 - Labs CBC & Chem 7: 02/01/18 04:20 02/01/18 04:20 Labs: Abnormal Lab Results - Last 24 Hours (Table) 01/31/18 01/31/18 01/31/18 Range/Units 12:05 12:22 17:29 WBC (3.8-10.6) k/uL RBC (4.30-5.90) m/uL Hgb (13.0-17.5) gm/dL Hct (39.0-53.0) % Neutrophils # (1.3-7.7) k/uL Sodium (137-145) mmol/L BUN (9-20) mg/dL Glucose (74-99) mg/dL POC Glucose (mg/dL) 314 H 304 H 175 H (75-99) mg/dL 01/31/18 01/31/18 02/01/18 Range/Units 21:14 21:15 04:20 WBC 17.5 H (3.8-10.6) k/uL RBC 4.03 L (4.30-5.90) m/uL Hgb 12.7 L (13.0-17.5) gm/dL Hct 37.6 L (39.0-53.0) % Neutrophils # 15.3 H (1.3-7.7) k/uL Sodium (137-145) mmol/L BUN (9-20) mg/dL Glucose (74-99) mg/dL POC Glucose (mg/dL) 246 H 211 H (75-99) mg/dL 02/01/18 02/01/18 Range/Units 04:20 06:02 WBC (3.8-10.6) k/uL RBC (4.30-5.90) m/uL Hgb (13.0-17.5) gm/dL Hct (39.0-53.0) % Neutrophils # (1.3-7.7) k/uL Sodium 135 L (137-145) mmol/L BUN 46 H (9-20) mg/dL Glucose 180 H (74-99) mg/dL POC Glucose (mg/dL) 171 H (75-99) mg/dL Assessment and Plan Assessment: assessment #1 coronary artery disease and status post a stenting of the left main #2 impaired LV function with EF of 40% #3 chronic atrial fibrillation #4 history of GI bleeding Plan #1 continue the current medical regimen including dual antiplatelet therapy #2 from the cardiac standpoint the patient can be transferred to the floor. #3 add digoxin to the current medical regimen
[2018-02-01] MEDS: METOPROLOL TARTRATE 50 MG TAB PO SCH ×2 (08:02→22:25)
[2018-02-01] MEDS: methylPREDNISolone SOD SUCCI 40 MG/ML 1 ML VIAL IV SCH ×2 (08:03→22:26)
[2018-02-01] MEDS: FUROSEMIDE 10 MG/ML 4 ML VIAL IV SCH ×2 (08:03→22:22)
[2018-02-01] MEDS: HEPARIN SODIUM,PORCINE 5,000 UNIT/ML 1 ML VIAL SQ SCH ×2 (08:03→22:23)
[2018-02-01] MEDS: DIGOXIN 125 MCG TAB PO SCH (08:03)
[2018-02-01] MEDS: PANTOPRAZOLE 40 MG TABLET PO SCH ×2 (08:03→17:16)
[2018-02-01] MEDS: JANUVIA 50 MG PO SCH (08:03)
[2018-02-01] MEDS: ASPIRIN 81 MG PO SCH (08:03)
[2018-02-01] MEDS: TICAGRELOR 90 MG TAB PO SCH ×2 (08:03→22:25)
[2018-02-01 11:24] LABS: Glucose,Whole Blood 179 mg/dL (75-99)
--- NOTE | 2018-02-01 15:18 | P.PN ---
Subjective 77-year-old that came in with chest pain found to have non-ST elevation myocardial infarction underwent stenting of the left main. Patient echocardiogram showed ejection fraction of around 40% patient is presently euvolemic was also treated for atrial fibrillation. Digoxin is being added. Patient is already on metoprolol marginally low blood pressure patient denied any shortness of breath feeling well does have some pedal edema Constitutional: Denied any fatigue denied any fever. Cardio vascular: denied any chest pain, palpitations Gastrointestinal denied any nausea vomiting Pulmonary: Denied any shortness of breath cough Neurologic denied any new focal deficits Objective - Vital Signs Vital signs: Vital Signs Temp 97.9 F 02/01/18 12:00 Pulse 91 02/01/18 12:00 Resp 16 02/01/18 12:00 BP 104/60 02/01/18 12:00 Pulse Ox 96 02/01/18 12:00 Intake & Output 01/31/18 02/01/18 02/01/18 18:59 06:59 18:59 Intake Total 655 535 525 Output Total 618 946 3034 Balance 55 185 -825 Weight 97.2 kg 97.4 kg Intake: IV 55 45 45 ns 55 45 45 Oral 600 490 480 Output: Urine 847 402 8597 Other: Voiding Method Bedside Commode Bedside Commode Bedside Commode # Voids 0 0 # Bowel Movements 1 1 ABP, PAP, CO, CI - Last Documented Arterial Blood Pressure 105/53 - Exam PHYSICAL EXAMINATION: GENERAL: The patient is alert and oriented x3, not in any acute distress. Well developed, well nourished. HEENT: Pupils are round and equally reacting to light. EOMI. No scleral icterus. No conjunctival pallor. Normocephalic, atraumatic. No pharyngeal erythema. No thyromegaly. CARDIOVASCULAR: S1 and S2 present. No murmurs, rubs, or gallops. Irregularly irregular rhythm but tachycardic PULMONARY: Chest is clear to auscultation, no wheezing or crackles. ABDOMEN: Soft, nontender, nondistended, normoactive bowel sounds. No palpable organomegaly. MUSCULOSKELETAL: No joint swelling or deformity. EXTREMITIES: No cyanosis, clubbing, mild pitting bilateral pedal edema NEUROLOGICAL: Gross neurological examination did not reveal any focal deficits. SKIN: No rashes. - Labs CBC & Chem 7: 02/01/18 04:20 02/01/18 04:20 Labs: Abnormal Lab Results - Last 24 Hours (Table) 01/31/18 01/31/18 01/31/18 Range/Units 17:29 21:14 21:15 WBC (3.8-10.6) k/uL RBC (4.30-5.90) m/uL Hgb (13.0-17.5) gm/dL Hct (39.0-53.0) % Neutrophils # (1.3-7.7) k/uL Sodium (137-145) mmol/L BUN (9-20) mg/dL Glucose (74-99) mg/dL POC Glucose (mg/dL) 175 H 246 H 211 H (75-99) mg/dL 02/01/18 02/01/18 02/01/18 Range/Units 04:20 04:20 06:02 WBC 17.5 H (3.8-10.6) k/uL RBC 4.03 L (4.30-5.90) m/uL Hgb 12.7 L (13.0-17.5) gm/dL Hct 37.6 L (39.0-53.0) % Neutrophils # 15.3 H (1.3-7.7) k/uL Sodium 135 L (137-145) mmol/L BUN 46 H (9-20) mg/dL Glucose 180 H (74-99) mg/dL POC Glucose (mg/dL) 171 H (75-99) mg/dL 02/01/18 Range/Units 11:20 WBC (3.8-10.6) k/uL RBC (4.30-5.90) m/uL Hgb (13.0-17.5) gm/dL Hct (39.0-53.0) % Neutrophils # (1.3-7.7) k/uL Sodium (137-145) mmol/L BUN (9-20) mg/dL Glucose (74-99) mg/dL POC Glucose (mg/dL) 179 H (75-99) mg/dL Assessment and Plan Plan: -Non-ST elevation microinfarction: Standing of left main as mentioned above continued to feel antiplatelet therapy beta savana area -Congestive heart failure possibly acute systolic dysfunction patient is presently euvolemic continue with present regimen patient need to be discharged on ALEC inhibitor injected some receptor savana -Atrial fibrillation chronic: Management as mentioned above, cardiology is managing. -COPD with acute exacerbation patient is on IV steroids inhalational treatments -Type 2 diabetes mellitus: Continue with present regimen titrate the regimen depending on his blood sugar levels -Hyperlipidemia -: Chronic low back pain -Osteoarthritis -Hyponatremia hypervolemic hyponatremia which improved now
[2018-02-01 17:09] LABS: Glucose,Whole Blood 227 mg/dL (75-99)
[2018-02-01] MEDS: ATORVASTATIN 80 MG TAB PO SCH (21:00)
[2018-02-01 22:22] LABS: Glucose,Whole Blood 146 mg/dL (75-99)
[2018-02-01] MEDS: GABAPENTIN 100 MG CAP PO SCH (22:22)
[2018-02-01] MEDS: INSULIN DETEMIR 100 UNIT/ML 10 ML VIAL SQ SCH (22:24)
[2018-02-01] MEDS: LOSARTAN 25 MG TAB PO SCH (22:25)
[2018-02-02] MEDS: NITROGLYCERIN OINT 1 INCH/GM PACKET TOPICAL SCH ×3 (02:20→15:30)
[2018-02-02 06:07] LABS: Basophils % (A) 0 %; Eosinophils % (A) 0 %; HCT 38.9 % (39.0-53.0); Lymphocytes # (A) 0.7 k/uL (1.0-4.8); Lymphocytes % (A) 6 %; MCH 30.9 pg (25.0-35.0); MCHC 33.4 g/dL (31.0-37.0); MCV 92.7 fL (80.0-100.0); Monocytes # (A) 0.8 k/uL (0-1.0); Monocytes % (A) 6 %; Neutrophils # (A) 10.8 k/uL (1.3-7.7); Neutrophils % (A) 87 %; Platelet Count 277 k/uL (150-450); RDW 13.7 % (11.5-15.5); WBC 12.3 k/uL (3.8-10.6)
[2018-02-02 06:17] LABS: Calcium 9.4 mg/dL (8.4-10.2); Phosphorus 3.7 mg/dL (2.5-4.5); Potassium 4.1 mmol/L (3.5-5.1)
[2018-02-02] MEDS: LEVOTHYROXINE 75 MCG TAB PO SCH (07:10)
[2018-02-02] MEDS: INSULIN ASPART 100 UNIT/ML 1 ML 10 ML VIAL SQ SCH ×2 (07:11→12:33)
[2018-02-02 07:19] LABS: Glucose,Whole Blood 104 mg/dL (75-99)
[2018-02-02] MEDS: FUROSEMIDE 10 MG/ML 4 ML VIAL IV SCH (08:54)
[2018-02-02] MEDS: ASPIRIN 81 MG PO SCH (08:54)
[2018-02-02] MEDS: PANTOPRAZOLE 40 MG TABLET PO SCH (08:54)
[2018-02-02] MEDS: METOPROLOL TARTRATE 50 MG TAB PO SCH (08:55)
[2018-02-02] MEDS: methylPREDNISolone SOD SUCCI 40 MG/ML 1 ML VIAL IV SCH (08:55)
[2018-02-02] MEDS: JANUVIA 50 MG PO SCH (08:55)
[2018-02-02] MEDS: TICAGRELOR 90 MG TAB PO SCH (08:55)
[2018-02-02] MEDS: HEPARIN SODIUM,PORCINE 5,000 UNIT/ML 1 ML VIAL SQ SCH (08:55)
[2018-02-02] MEDS: DIGOXIN 125 MCG TAB PO SCH (08:56)
[2018-02-02] MEDS: IPRATROPIUM-ALBUTEROL 3 ML NEB INHALATION PRN (10:02)
[2018-02-02 12:24] VITALS: RESP 18; TEMP 97.7
[2018-02-02 12:33] LABS: Glucose,Whole Blood 181 mg/dL (75-99)
--- NOTE | 2018-02-02 12:43 | P.PN ---
Subjective Progress Note Date: 02/02/18 Principal diagnosis: Acute coronary event This is a pleasant 77-year-old gentleman who presented to the hospital with a chest discomfort and underwent a heart catheterization and stenting of the left main. I'll follow-up with him today, he denies having any chest pain or chest discomfort or shortness of breath. He continues to be in atrial fibrillation with heart rate around 100 beats per minutes. The patient is not a candidate to have any oral anticoagulation because of history of GI bleeding in the past. The echocardiogram revealed impaired LV function with EF around 40%. On follow-up with the patient today, he is doing good and he is asymptomatic. Yesterday I did add digoxin and the heart rate seems to be slightly better today. Objective - Vital Signs Vital signs: Vital Signs Temp 97.7 F 02/02/18 12:00 Pulse 96 02/02/18 12:00 Resp 18 02/02/18 12:00 BP 121/84 02/02/18 12:00 Pulse Ox 98 02/02/18 12:00 Intake & Output 02/01/18 02/02/18 02/02/18 18:59 06:59 18:59 Intake Total 1020 60 270 Output Total 1350 3060 1250 Balance -330 -3000 -980 Weight 95.5 kg Intake: IV 60 60 30 ns 60 60 30 Oral 960 240 Output: Urine 1350 3060 1250 Other: Voiding Method Bedside Commode Bedside Commode Bedside Commode # Voids 0 # Bowel Movements 1 1 ABP, PAP, CO, CI - Last Documented Arterial Blood Pressure 105/53 - Constitutional General appearance: Present: no acute distress - Respiratory Respiratory: bilateral: CTA - Cardiovascular Rhythm: irregularly irregular Heart sounds: normal: S1, S2 - Labs CBC & Chem 7: 02/02/18 05:50 02/02/18 05:50 Labs: Abnormal Lab Results - Last 24 Hours (Table) 02/01/18 02/01/18 02/02/18 Range/Units 17:08 22:10 05:50 WBC 12.3 H (3.8-10.6) k/uL RBC 4.20 L (4.30-5.90) m/uL Hct 38.9 L (39.0-53.0) % Neutrophils # 10.8 H (1.3-7.7) k/uL Lymphocytes # 0.7 L (1.0-4.8) k/uL Carbon Dioxide (22-30) mmol/L BUN (9-20) mg/dL POC Glucose (mg/dL) 227 H 146 H (75-99) mg/dL 02/02/18 02/02/18 02/02/18 Range/Units 05:50 07:08 12:21 WBC (3.8-10.6) k/uL RBC (4.30-5.90) m/uL Hct (39.0-53.0) % Neutrophils # (1.3-7.7) k/uL Lymphocytes # (1.0-4.8) k/uL Carbon Dioxide 35 H (22-30) mmol/L BUN 49 H (9-20) mg/dL POC Glucose (mg/dL) 104 H 181 H (75-99) mg/dL Assessment and Plan Assessment: assessment #1 coronary artery disease and status post a stenting of the left main #2 impaired LV function with EF of 40% #3 chronic atrial fibrillation #4 history of GI bleeding Plan #1 continue the current medical regimen including dual antiplatelet therapy #2 from the cardiac standpoint the patient can be transferred to the floor.
--- NOTE | 2018-02-02 14:58 | P.DS ---
Providers Date of admission: 01/28/18 06:41 Expected date of discharge: 02/02/18 Attending physician: Garo Chua Consults: 01/28/18 09:00 Consult Physician Routine Consulting Provider: [facility] Consult Reason/Comments: Post Interventional patient Do you want consulting provider notified?: Already Contacted Placement Type Exists?: Yes 01/28/18 09:01 Consult Physician Stat Consulting Provider: Darlene Ornelas Consult Reason/Comments: STEMI Do you want consulting provider notified?: Yes 01/28/18 10:10 Consult Physician Stat Consulting Provider: Celestino Martínez Consult Reason/Comments: icu management Do you want consulting provider notified?: Already Contacted 01/29/18 17:58 Consult Physician Routine Consulting Provider: [facility] Consult Reason/Comments: Patient complains of pineapple stuck in back of throat. Do you want consulting provider notified?: Yes Primary care physician: Stated None Hospital Course: 77-year-old male had originally presented to Dr. Chua's office with a 7 day history of chest tightness. After he was evaluated by his PCP, the decision was made to admit the patient to the hospital for further evaluation. The patient was evaluated by cardiology and underwent cardiac catherization with stent placement to the left main coronary artery. He did have an intra- aortic balloon pump placed during the procedure. He has a history of afib was taking Eliquis. Cardiology states the patient is to only continue on Brilinta and aspirin at the time of discharge. Eliquis was discontinued. Echo reveals EF between 40 and 45%. The patient did develop an acute exacerbation of his COPD during hospitalization. Dr. Martínez was consulted and evaluated patient. He was treated with IV steroids and nebulizer treatments. His respiratory status has improved and is back to the patient's baseline. He was deemed stable for discharge. He was evaluated by physical therapy prior to discharge and was found safe to return home. The patient was ordered a 4 wheeled rolling walker as recommended by physical therapy prior to discharge. Prescriptions were sent to the patient's preferred pharmacy for aspirin 81 mg daily, Lipitor 80 mg at night, digoxin 125 mics daily, Lasix 20 mgPO twice a day, Cozaar 25 mg at night , metoprolol 50 mg twice a day, Brilinta 90 mg twice a day, and a prednisone taper. DISCHARGE DIAGNOSIS: Non-ST elevated myocardial infarction, status post stent to left main coronary artery Chronic atrial fibrillation Acute exacerbation of chronic obstructive pulmonary disease Hypertension Diabetes mellitus, type II Hyperglycemia Hyperlipidemia Osteoarthritis Lumbar stenosis with neuropathy Ischemic cardiomyopathy, EF 40% Hyponatremia, improved Nurse practitioner note has been reviewed by physician. Signing provider agrees with the documented findings, assessment, and plan of care. Patient Condition at Discharge: Stable Plan - Discharge Summary Discharge Rx Participant: No New Discharge Prescriptions: New Aspirin 81 mg PO DAILY #30 chew Atorvastatin [Lipitor] 80 mg PO HS #30 tab Digoxin [Lanoxin] 125 mcg PO DAILY #30 tab Furosemide [Lasix] 20 mg PO BID #60 tab Losartan [Cozaar] 25 mg PO HS #30 tab Metoprolol Tartrate [Lopressor] 50 mg PO BID #60 tab Ticagrelor [Brilinta] 90 mg PO BID #60 tab predniSONE See Taper PO DIRECTED #30 tab Continue Gabapentin [Neurontin] 100 mg PO DAILY Levothyroxine Sodium [Synthroid] 150 mcg PO DAILY Albuterol Inhaler [Ventolin Hfa Inhaler] 1 - 2 puff INHALATION RT-Q6H PRN PRN Reason: Shortness Of Breath sitaGLIPtin [Januvia] 50 mg PO DAILY Discontinued Metoprolol Tartrate 25 mg PO BID Furosemide [Lasix] 20 mg PO DAILY Discharge Medication List Gabapentin [Neurontin] 100 mg PO DAILY 01/28/18 [History] Levothyroxine Sodium [Synthroid] 150 mcg PO DAILY 01/28/18 [History] Albuterol Inhaler [Ventolin Hfa Inhaler] 1 - 2 puff INHALATION RT-Q6H PRN [History] sitaGLIPtin [Januvia] 50 mg PO DAILY 01/30/18 [History] Aspirin 81 mg PO DAILY #30 chew 02/02/18 [Rx] Atorvastatin [Lipitor] 80 mg PO HS #30 tab 02/02/18 [Rx] Digoxin [Lanoxin] 125 mcg PO DAILY #30 tab 02/02/18 [Rx] Furosemide [Lasix] 20 mg PO BID #60 tab 02/02/18 [Rx] Losartan [Cozaar] 25 mg PO HS #30 tab 02/02/18 [Rx] Metoprolol Tartrate [Lopressor] 50 mg PO BID #60 tab 02/02/18 [Rx] Ticagrelor [Brilinta] 90 mg PO BID #60 tab 02/02/18 [Rx] predniSONE See Taper PO DIRECTED #30 tab 02/02/18 [Rx] Follow up Appointment(s)/Referral(s): Garo Chua MD [STAFF PHYSICIAN] - 1-2 Days Celestino Martínez MD [STAFF PHYSICIAN] - 2 Weeks Win Trinidad MD [STAFF PHYSICIAN] - 1 Week Activity/Diet/Wound Care/Special Instructions: Brilinta copay $43.50 Discharge Disposition: HOME SELF-CARE
[2018-02-02 16:24] VITALS: BP 117/75; PULSE 97
[2018-02-02] MEDS ORDERED: LOSARTAN 25 MG TAB PO SCH (21:00)
[2018-02-03] MEDS ORDERED: DIGOXIN 125 MCG TAB PO SCH (09:00)
== END 2018-02-02 16:30 | disposition home or self-care (01) | DRG 270 ==
LOC: EDSEX → 6ICU 06:41 → 2SICU 02-01 09:39
PROVIDERS: ADMIT Family Medicine; ATTEND Family Medicine
PROC: 02HV33Z Insertion of Infusion Device into Superior Vena Cava, Percutaneous Approach (ICD-10-PCS; principal; 2018-01-28 06:35)
PROC: 4A023N7 Measurement of Cardiac Sampling and Pressure, Left Heart, Percutaneous Approach (ICD-10-PCS; 2018-01-28 06:35)
PROC: 027034Z Dilation of Coronary Artery, One Artery with Drug-eluting Intraluminal Device, Percutaneous Approach (ICD-10-PCS; 2018-01-28 06:35)
PROC: B2151ZZ Fluoroscopy of Left Heart using Low Osmolar Contrast (ICD-10-PCS; 2018-01-28 06:35)
PROC: 5A02210 Assistance with Cardiac Output using Balloon Pump, Continuous (ICD-10-PCS; 2018-01-28 06:35)
PROC: B2111ZZ Fluoroscopy of Multiple Coronary Arteries using Low Osmolar Contrast (ICD-10-PCS; 2018-01-28 06:35)
PROC: 0CJY8ZZ Inspection of Mouth and Throat, Via Natural or Artificial Opening Endoscopic (ICD-10-PCS; 2018-01-31)
DX: I21.4 Non-ST elevation (NSTEMI) myocardial infarction (principal); I50.21 Acute systolic (congestive) heart failure; E87.1 Hypo-osmolality and hyponatremia; J44.1 Chronic obstructive pulmonary disease with (acute) exacerbation; J98.11 Atelectasis; E11.65 Type 2 diabetes mellitus with hyperglycemia; E66.01 Morbid (severe) obesity due to excess calories; E78.00 Pure hypercholesterolemia, unspecified; E78.5 Hyperlipidemia, unspecified; F41.9 Anxiety disorder, unspecified; G47.33 Obstructive sleep apnea (adult) (pediatric); E11.40 Type 2 diabetes mellitus with diabetic neuropathy, unspecified; M48.061 Spinal stenosis, lumbar region without neurogenic claudication; I11.0 Hypertensive heart disease with heart failure; I25.10 Atherosclerotic heart disease of native coronary artery without angina pectoris; I25.2 Old myocardial infarction; I25.5 Ischemic cardiomyopathy; I48.2 Chronic atrial fibrillation; K21.9 Gastro-esophageal reflux disease without esophagitis; M19.90 Unspecified osteoarthritis, unspecified site; R79.1 Abnormal coagulation profile; Z79.01 Long term (current) use of anticoagulants; Z79.82 Long term (current) use of aspirin; Z79.84 Long term (current) use of oral hypoglycemic drugs; Z87.891 Personal history of nicotine dependence; Z95.5 Presence of coronary angioplasty implant and graft; Z88.5 Allergy status to narcotic agent; Z88.8 Allergy status to other drugs, medicaments and biological substances; Z79.890 Hormone replacement therapy; Z79.899 Other long term (current) drug therapy; Z68.33 Body mass index [BMI] 33.0-33.9, adult; R60.9 Edema, unspecified
CPT/HCPCS: 33967; 71045; 80048; 80053; 83036; 83735; 84100; 84132; 84484; 85025; 85610; 85730; 93306; 93458; 94640; 94660; C1874